=== PATIENT | female | born 1945 | race Caucasian/White ===

== ENCOUNTER 2020-07-10 09:05 | Outpatient (REF) | payer MEDICARE, MEDICAID, SELFPAY ==
--- NOTE | ~2020-07-10 | MM_ITS ---
EXAMINATION: MM SCREENING DIGITAL BREAST TOMOSYNTHESIS, BILATERAL CLINICAL INFORMATION: Screening. Asymptomatic. The lifetime risk of breast cancer based on the Tyrer-Cuzick Model is 3%. COMPARISON: Mammography: 06/30/2018, 04/20/2017, 04/15/2016, 03/14/2015 TECHNIQUE: Digital breast tomosynthesis is performed in both the craniocaudal and mediolateral oblique views along with computer-aided detection (CAD). Synthesized 2D images are generated from the tomosynthesis. FINDINGS: The breasts are heterogeneously dense, which may obscure small masses (ACR BI-RADS breast composition Category c). There are no significant masses, abnormal calcifications, or other abnormalities. Parenchymal pattern is similar to prior studies. No developing density. The axilla and skin contours are unremarkable. MM/MM tomosynthesis screening BI IMPRESSION: No mammographic evidence of malignancy. ASSESSMENT: BI-RADS 1: Negative RECOMMENDATION: Routine annual mammography screening. This patient's information was entered into a reminder system with a target due date for their next mammogram.
== END 2020-07-10 09:06 | disposition home or self-care (01) ==
LOC: HO.MAMMO 09:05
PROVIDERS: PCP Internal Medicine; Visit Provider Internal Medicine
DX: Z12.31 Encounter for screening mammogram for malignant neoplasm of breast (principal)
CPT/HCPCS: 77063; 77067

== ENCOUNTER 2020-07-24 10:24 | Outpatient (REF) | payer MEDICARE, MEDICAID, SELFPAY ==
[2020-07-24 11:43] LABS: Glucose Urine UA NEG (NEG); Leukocyte Esterase Urine NEG (NEG); Nitrite Urine NEG (NEG); PH 6.5 (5.0-8.0); Urine Blood NEG (NEG); Urine Ketones NEG (NEG); Urine Protein NEG (NEG-TRACE)
[2020-07-24 11:44] LABS: Appearance Urine CLEAR; Color Urine YELLOW
[2020-07-24 11:47] LABS: Basophils Percent Auto 0.5 % (0-2); Hematocrit 41.7 % (37-47); Imm Gran Abs Auto 0.02 X10*3/uL (0.00-0.03); Imm Gran Pct Auto 0.3 % (0.0-0.4); MANUAL DIFF FLAG SCAN; Mean Platelet Volume 10.1 fL (9.4-12.3); PLT CLUMP 1; Red Cell Distribution Width 13.2 % (11.0-16.0); SCAN SMEAR FLAG 1
[2020-07-24 11:49] LABS: Eosinophils Absolute Auto 0.3 X10*3/uL (0.0-0.4); Eosinophils Percent Auto 5.5 % (0-4); Hemoglobin 13.7 g/dl (12.0-16.0); Lymphocytes Absolute Auto 0.7 X10*3/uL (1.2-4.9); Lymphocytes Percent Auto 11.3 % (20-40); Mean Corpuscular HGB Conc 32.9 g/dl (31.0-35.0); Mean Corpuscular Hemoglobin 32.3 pg (27.0-33.0); Mean Corpuscular Volume 98.3 fL (80-98); Monocytes Absolute Auto 0.6 X10*3/uL (0.1-1.2); Monocytes Percent Auto 9.7 % (2-11); Neutrophils Absolute Auto 4.5 X10*3/uL (2.0-8.3); Neutrophils Percent Auto 72.7 % (45-73); Red Blood Count 4.24 X10*6/uL (4.20-5.50); White Blood Count 6.2 X10*3/uL (4.8-10.8)
[2020-07-24 12:06] LABS: RBC Urine 0-2 /HPF (0)
[2020-07-24 12:07] LABS: Amorphous Sediment Urine 1+ /LPF; Bacteria Urine TRACE /LPF; Squamous Epithelial Cell Urine 1+ /LPF
[2020-07-24 12:19] LABS: Platelet Count 270 X10*3/uL (160-400); SLIDE REVIEW VERIFIED
[2020-07-24 12:33] LABS: TSH reflex Free T4 0.83 uIU/mL (0.32-4.0); Vitamin D 25-OH Total 33.6 ng/mL (>30)
[2020-07-24 12:51] LABS: Alanine Aminotransferase 11 U/L (0-31); Albumin Level 4.1 g/dL (3.5-5.0); Alkaline Phosphatase 90 U/L (39-117); Anion Gap 11 (12-20); Aspartate Amino Transferase 21 U/L (5-31); Bilirubin Total 0.5 mg/dL (0.0-1.0); Blood Urea Nitrogen 10 mg/dL (9-16); Calcium 9.1 mg/dL (8.4-10.2); Carbon Dioxide 27 mmol/L (22-29); Chloride 106 mmol/L (96-108); Cholesterol 195 mg/dL; Estimated Glomerular Filt Rate > 60; Glucose Fasting 91 mg/dL (60-99); HDL Cholesterol 59 mg/dL; LDL Cholesterol Calculated 118 mg/dl; Potassium 4.3 mmol/L (3.3-5.1); Sodium 140 mmol/L (135-145); Total Protein 7.2 g/dL (6.5-8.0); Triglycerides 93 mg/dL; Vitamin B12 289 pg/mL (200-900)
== END 2020-07-24 10:25 | disposition home or self-care (01) ==
LOC: HO.LAB 10:24
PROVIDERS: PCP Internal Medicine; Visit Provider Nurse Practitioner Family
DX: Z13.220 Encounter for screening for lipoid disorders (principal); Z13.1 Encounter for screening for diabetes mellitus; E03.9 Hypothyroidism, unspecified
CPT/HCPCS: 36415; 80053; 80061; 81001; 82306; 82607; 82746; 84443; 85025

== ENCOUNTER 2020-08-21 09:01 | Outpatient (REF) | payer MEDICARE, MEDICAID, SELFPAY ==
--- NOTE | ~2020-08-21 | MM_ITS ---
EXAMINATION: BONE DENSITOMETRY CLINICAL INDICATION: Asymptomatic menopausal state. COMPARISON: Baseline BD dated 01/01/2011. TECHNIQUE: Using a Logan DXA System (software version: 13.1) manufactured by [employer], dual-energy x-ray absorptiometry was performed of the lumbar spine and left hip. The images are of good technical quality. Summary results are attached. FINDINGS: AP SPINE L1-L4: Current: BMD 1.372 g/cm2, Z-score 3.2, T-score 1.6, normal, 2.3% increase from baseline (<5% change is not significant). Baseline: BMD 1.341 g/cm2. LEFT FEMUR, NECK: Current: BMD 0.795 g/cm2, Z-score 0.1, T-score -1.7, osteopenia. Baseline: BMD 0.960 g/cm2. LEFT FEMUR, TOTAL: Current: BMD 0.939 g/cm2, Z-score 1.1, T-score -0.5, normal, 5.2% decrease from baseline (<5% change is not significant). Baseline: BMD 0.990 g/cm2. IDENTIFIED RISK FACTORS: Osteoporosis, history of fracture (adult). Early menopause, secondary osteoporosis, height loss, hysterectomy and bilateral oophorectomy. HISTORY OF FRACTURE: Pelvis, shoulder. MEDICATIONS: Calcium supplements or multivitamin, vitamin D. MM/XR DEXA axial skeleton IMPRESSION: 1. DIAGNOSIS: Osteopenia based on the lowest T-score value of -1.7 in the femoral neck applying World Health Organization criteria. 2. 10-YEAR FRACTURE RISK PREDICTION, FRAX: Major osteoporotic fracture (clinical spine, forearm, hip or shoulder) 18.4%. Hip fracture 4.0%. 3. Treatment Recommendations: NOF guidelines recommend consideration for treatment in postmenopausal women and men age 50 and older presenting with the following: -A hip or vertebral (clinical or morphometric) fracture. -T-score less than or equal to -2.5 at the femoral neck or spine after appropriate evaluation to exclude secondary causes. -Low bone mass at the hip or spine and a 10-year fracture probability by FRAX of greater than or equal to 3% for hip fracture or greater than or equal to 20% for major osteoporotic fracture based on the [place] adapted WHO algorithm. 4. Other Recommendations: All treatment decisions require clinical judgment and consideration of individual patient factors, including patient preferences, comorbidities, previous drug use, risk factors not captured in the FRAX model (e.g. frailty, falls, vitamin D deficiency, increased bone turnover, interval significant decline in bone density) and possible under or overestimation of fracture risk by FRAX. Additional medical evaluation for secondary cause of low bone mineral density may be appropriate. FUTURE SCAN RECOMMENDATION: People with diagnosed cases of osteoporosis or at high risk for fracture should have regular bone mineral density tests. For patients eligible for Medicare, routine testing is allowed once every 2 years. The testing frequency can be increased to one year for patients who have rapidly progressing disease, those who are receiving or discontinuing medical therapy to restore bone mass, or have additional risk factors.
== END 2020-08-21 09:02 | disposition home or self-care (01) ==
LOC: HO.MAMMO 09:01
PROVIDERS: Visit Provider Nurse Practitioner Family
DX: Z13.820 Encounter for screening for osteoporosis (principal); M85.80 Other specified disorders of bone density and structure, unspecified site; Z78.0 Asymptomatic menopausal state; Z79.899 Other long term (current) drug therapy; Z87.81 Personal history of (healed) traumatic fracture
CPT/HCPCS: 77080

== ENCOUNTER 2021-05-07 11:30 | Outpatient (REF) | payer MEDICARE, MEDICAID, SELFPAY ==
[2021-05-07 11:57] LABS: MANUAL DIFF FLAG NO
[2021-05-07 12:34] LABS: Basophils Percent Auto 0.5 % (0-2); Eosinophils Absolute Auto 0.3 X10*3/uL (0.0-0.4); Eosinophils Percent Auto 4.9 % (0-4); Hematocrit 39.3 % (37.0-47.0); Hemoglobin 12.8 g/dl (12.0-16.0); Imm Gran Abs Auto 0.02 X10*3/uL (0.00-0.03); Imm Gran Pct Auto 0.3 % (0.0-0.4); Lymphocytes Absolute Auto 0.7 X10*3/uL (1.2-4.9); Lymphocytes Percent Auto 10.6 % (20-40); Mean Corpuscular HGB Conc 32.6 g/dl (31.0-35.0); Mean Corpuscular Hemoglobin 31.8 pg (27.0-33.0); Mean Corpuscular Volume 97.8 fL (80.0-98.0); Mean Platelet Volume 9.3 fL (9.4-12.3); Monocytes Absolute Auto 0.7 X10*3/uL (0.1-1.2); Monocytes Percent Auto 11.5 % (2-11); Neutrophils Absolute Auto 4.4 x10*3/uL (2.0-8.3); Neutrophils Percent Auto 72.2 % (45-73); Platelet Count 295 X10*3/uL (160-400); Red Blood Count 4.02 X10*6/uL (4.20-5.50); Red Cell Distribution Width 13.6 % (11.0-16.0); White Blood Count 6.2 X10*3/uL (4.8-10.8)
[2021-05-07 12:49] LABS: Appearance Urine CLEAR; Color Urine YELLOW; Glucose Urine UA NEG (NEG); Leukocyte Esterase Urine NEG (NEG); Nitrite Urine NEG (NEG); PH 6.5 (5.0-8.0); Specific Gravity - Urine <= 1.005 (1.005-1.025); Urine Blood NEG (NEG); Urine Ketones 5 MG/DL (NEG); Urine Protein NEG (NEG-TRACE)
[2021-05-07 13:51] LABS: Alanine Aminotransferase 14 U/L (0-31); Albumin Level 3.8 g/dL (3.5-5.0); Alkaline Phosphatase 84 U/L (39-117); Anion Gap 13 (12-20); Aspartate Amino Transferase 20 U/L (5-31); Bilirubin Total 0.6 mg/dL (0.0-1.0); Blood Urea Nitrogen 10 mg/dL (9-16); Calcium 9.1 mg/dL (8.4-10.2); Carbon Dioxide 25 mmol/L (22-29); Chloride 103 mmol/L (96-108); Cholesterol 182 mg/dL; Estimated Glomerular Filt Rate > 60; Glucose Fasting 82 mg/dL (60-99); HDL Cholesterol 53 mg/dL; LDL Cholesterol Calculated 107 mg/dl; Potassium 4.3 mmol/L (3.3-5.1); Sodium 137 mmol/L (135-145); Triglycerides 114 mg/dL
[2021-05-07 14:02] LABS: Free T4 (Free Thyroxine) 1.08 ng/dL (0.71-1.85); Thyroid Stimulating Hormone 0.57 uIU/mL (0.32-4.0)
[2021-05-08 15:31] LABS: Vitamin D 25-OH Total 35.9 ng/mL (>30)
== END 2021-05-07 11:31 | disposition home or self-care (01) ==
LOC: HO.LAB 11:30
PROVIDERS: PCP Internal Medicine; Visit Provider Internal Medicine
DX: I10 Essential (primary) hypertension (principal); E78.00 Pure hypercholesterolemia, unspecified; E55.9 Vitamin D deficiency, unspecified; E03.9 Hypothyroidism, unspecified
CPT/HCPCS: 36415; 80053; 80061; 81003; 82306; 84439; 84443; 85025

== ENCOUNTER 2021-07-16 10:01 | Outpatient (REF) | payer MEDICARE, MEDICAID, SELFPAY ==
--- NOTE | ~2021-07-16 | MM_ITS ---
EXAMINATION: MM SCREENING DIGITAL BREAST TOMOSYNTHESIS, BILATERAL CLINICAL INFORMATION: Screening. Asymptomatic. The lifetime risk of breast cancer based on the Tyrer-Cuzick Model is 3%. COMPARISON: Mammography: 07/10/2020, 06/30/2018, 04/20/2017, 04/15/2016, 03/14/2015 TECHNIQUE: Digital breast tomosynthesis is performed in both the craniocaudal and mediolateral oblique views along with computer-aided detection (CAD). Synthesized 2D images are generated from the tomosynthesis. Additional left MLO view is provided. FINDINGS: The breasts are heterogeneously dense, which may obscure small masses (ACR BI-RADS breast composition Category c). There are no significant masses, abnormal calcifications, or other abnormalities. Breast tissue composition borders on average fibroglandular. There is no developing density. There are some punctate calcifications in each breast similar to prior studies. The axilla are unremarkable. MM/MM tomosynthesis screening BI IMPRESSION: No mammographic evidence of malignancy. ASSESSMENT: BI-RADS 2: Benign RECOMMENDATION: Routine annual mammography screening. This patient's information was entered into a reminder system with a target due date for their next mammogram.
== END 2021-07-16 10:02 | disposition home or self-care (01) ==
LOC: HO.MAMMO 10:01
PROVIDERS: PCP Internal Medicine; Visit Provider Internal Medicine
DX: Z12.31 Encounter for screening mammogram for malignant neoplasm of breast (principal)
CPT/HCPCS: 77063; 77067

== ENCOUNTER 2021-07-29 08:16 | Day surgery (SDC) | payer MEDICARE, MEDICAID, SELFPAY ==
[2021-07-23 11:11] VITALS: BMI 29.5
--- NOTE | 2021-07-28 08:33 | P.CONAN_ITS ---
Documented by User: Tory Fuentes NP 07/28/21 08:34 HPI - Anesthesia Eval Consult details Narrative: 76yo M for Colonoscopy PMFSH Active Problems Active Problems: All Active Problems (Updated 07/23/21 @ 11:13 by Kerri Mehta RN) Screening for diabetes mellitus (Acute) Screening for colon cancer (Acute) Screening for hyperlipidemia (Acute) Adult general medical exam (Acute) History of uterine cancer (Acute) Obesity (BMI 30-39.9) (Acute) Overactive bladder (Acute) GERD without esophagitis (Acute) Pure hypercholesterolemia (Acute) Acquired hypothyroidism (Acute) Post-menopausal (Acute) Past Medical History Medical History COVID-19 vaccine series declined Endometrioid carcinoma Family History Family History Mother No problems noted. Father No problems noted. Surgical History Surgical History History of colonoscopy History of hysterectomy History of pelvic surgery Social History Social History Household Members Other:: lives in [facility] Housing: Other Housing Other:: lives in [facility] Are you a primary rn progressive care unit to a significant other at home: No Do you presently have visiting nurse or other home services: No Alcohol intake: never Patient Tobacco Use Status: Never used Tobacco Second Hand Smoke Exposure: Yes Use of substances other than those prescribed or required for medical reasons: No Have you been hit, kicked, punched, or otherwise hurt by someone within the past year? If so, by whom?: No Are you DNR?: No Advance Directives Information Provided: Yes (will bring copy DOS) Advance Directives on File: No Recently lost weight without trying: No Eating poorly because of decreased appetite: No Nutrition Risks: No Nutritional Risk Poor oral hygiene: No (has partial denture) service: No Current occupational status: retired and disabled Meds Allergies Allergy/AdvReac Type Severity Reaction Status Date / Time Sulfa (Sulfonamide Allergy Unknown Anaphylaxis Verified 05/07/21 10:38 Antibiotics) narcotics/opioids Allergy Unknown oppisite Uncoded 05/07/21 10:38 effect Home Medications Medication Instructions Recorded Confirmed Last Taken Type multivitamin 1 tab PO DAILY 07/24/20 07/23/21 Unknown History psyllium seed (sugar) oral powder 1 tsp PO DAILY 07/24/20 07/23/21 Unknown History (Metamucil (sugar)) calcium carbonate 600 mg calcium 600 mg PO DAILY 07/23/21 07/23/21 Unknown History (1,500 mg) tablet (Calcium) Exam Exam Date and Time: July 28, 2021 0833 Height,Weight and Vital Signs: Height 5 ft Weight 68.492 kg Pertinent Lab Results Pertinent Lab Results: Laboratory Tests 05/07/21 05/07/21 11:56 11:56 WBC 6.2 Hgb 12.8 Hct 39.3 Plt Count 295 Sodium 137 Potassium 4.3 Chloride 103 Carbon Dioxide 25 BUN 10 Creatinine 0.64 Assessment and Plan Assessment Anesthesia Assessment: Chart Reviewed Documented by User: Jerome Love MD 07/29/21 09:39 [facility] Past Medical History Medical History COVID-19 vaccine series declined Endometrioid carcinoma Family History Family History Mother No problems noted. Father No problems noted. Family history of problems with anesthesia: No Surgical History Surgical History History of colonoscopy History of hysterectomy History of pelvic surgery History of Problems with Anesthesia: No Social History Social History Household Members Other:: lives in [facility] Housing: Other Housing Other:: lives in [facility] Are you a primary rn progressive care unit to a significant other at home: No Do you presently have visiting nurse or other home services: No Alcohol intake: never Patient Tobacco Use Status: Never used Tobacco Second Hand Smoke Exposure: Yes Use of substances other than those prescribed or required for medical reasons: No Have you been hit, kicked, punched, or otherwise hurt by someone within the past year? If so, by whom?: No Are you DNR?: No Advance Directives Information Provided: Yes (will bring copy DOS) Advance Directives on File: No Recently lost weight without trying: No Eating poorly because of decreased appetite: No Nutrition Risks: No Nutritional Risk Poor oral hygiene: No (has partial denture) service: No Current occupational status: retired and disabled Meds Allergies Allergy/AdvReac Type Severity Reaction Status Date / Time Sulfa (Sulfonamide Allergy Unknown Anaphylaxis Verified 05/07/21 10:38 Antibiotics) narcotics/opioids Allergy Unknown oppisite Uncoded 05/07/21 10:38 effect Home Medications Medication Instructions Recorded Confirmed Last Taken Type multivitamin 1 tab PO DAILY 07/24/20 07/23/21 Unknown History psyllium seed (sugar) oral powder 1 tsp PO DAILY 07/24/20 07/23/21 Unknown History (Metamucil (sugar)) calcium carbonate 600 mg calcium 600 mg PO DAILY 07/23/21 07/23/21 Unknown History (1,500 mg) tablet (Calcium) Exam Airway Mallampati Class: II TM Dist: >3cm Neck ROM: Full Partial: Lower Loose/Missing/Broken Teeth: Yes Assessment and Plan Assessment Anesthesia Assessment: Anesthesia Plan Discussed Final Anesthetic Review Family History of Problems with Anesthesia: No History of Problems with Anesthesia: No NPO: Yes ASA Class: III Final Preanesthetic Review: No Changes in Pt Med Stat, Meds/Allgs Chart Reviewed, Consent Obtained/Reviewed and Anes Risks/Benef Reviewed Patient Risk: Intermediate Procedure Risk: Low Anesthetic Plan Anesthetic Plan: MAC: Disposition: Standard PACU
[2021-07-29 09:27] VITALS: BP 141/62; PULSE 63; RESP 16; TEMP 36.7; O2SAT 96; BMI 28.9
[2021-07-29] MEDS: Lactated Ringers 1,000 ML 100 ML IVCONT (09:37)
--- NOTE | 2021-07-29 09:37 | MHC.SHP ---
Pre-Procedural Eval Section A Date of Service: 07/29/21 Section B Chief Complaint: screening Details of Present Illness: see H&P no changes Relevant Family History (Specify if Yes): No Relevant Social History: None Present Medications: see Short Stay Collaborative assessment Medical History: No relevant PMH History of Previous Operations: No relevant previous surgery Allergies: Allergies Allergy/AdvReac Type Severity Reaction Status Date / Time Sulfa (Sulfonamide Allergy Unknown Anaphylaxis Verified 05/07/21 10:38 Antibiotics) narcotics/opioids Allergy Unknown oppisite Uncoded 05/07/21 10:38 effect Review of Systems Sugical H&P ROS: Negative: Constitution, Cardiovascular, Respiratory, Neurological, Psychiatric, Hem-Onc, Allergic/Immunologic, Gastrointestinal, Genitourinary, Musculoskeletal, Integumentary, Endocrine and Eyes/Ears/Nose/Throat Exam Surgical H&P Exam: Normal: HEENT, Normal: Heart, Normal: Lungs, Normal: Extremities, Normal: Abdomen, Normal: Skin and Normal: Neurological Plan Diagnosis/Plan: Unchanged I have reviewed the history and physical and performed a pertinent physical examination on my patient. No changes have occurred unless specified.
[2021-07-29 10:17] VITALS: BP 93/43; PULSE 61; RESP 20; TEMP 36.1; O2SAT 95
--- NOTE | 2021-07-29 10:18 | PM.OP ---
Brief Operative Note Date of Service: 07/29/21 Pre-op diagnosis: screening Post-op diagnosis: same (colon polyps) Surgeon: Vignesh Blanc Anesthesia: MAC Was an Associate Programmer Analyst used for this Procedure?: No Estimated blood loss (mL): 5 Pathology: other (polyps x5) Condition: stable Disposition: PACU
[2021-07-29 10:32] VITALS: BP 131/55; PULSE 61; RESP 18; TEMP 36.1; O2SAT 96
--- NOTE | 2021-07-29 12:41 | OP_ITS ---
SURGEON: Vignesh Blanc MD INDICATIONS: Colon cancer screening. PREOPERATIVE DIAGNOSIS: POSTOPERATIVE DIAGNOSIS: PROCEDURE PERFORMED: Colonoscopy to the terminal ileum with snare polypectomy and biopsy. ESTIMATED BLOOD LOSS: COMPLICATIONS: ANESTHESIA: ASSISTANTS: SPECIMENS: MEDICATIONS: Monitored anesthesia care. DESCRIPTION OF PROCEDURE: History and physical were performed. The risks and benefits of the procedure were explained to the patient. Informed consent was obtained. The patient was placed in the left lateral decubitus position. A digital rectal exam was performed and was found to be normal. The Olympus pediatric video colonoscope was introduced into the rectum and advanced to the cecum without difficulty. The cecum was identified by transillumination, palpation, and identification of ileocecal valve. Examination was performed. The scope was removed. She tolerated the procedure well and was taken to recovery area in stable condition. FINDINGS: The terminal ileum was normal. The visualized colonic mucosa was within normal limits without evidence of masses or ulcers. There were multiple polyps, 2 were located in the cecum, 1 at 65 cm, 1 at 60 cm and 1 at 50 cm. The largest measured approximately 8 mm. Polyps were removed with a combination of snare and biopsy forceps. Retroflexed examination showed some small internal hemorrhoids. The quality of the prep was good. No other lesions were identified. IMPRESSION: Colon polyps. RECOMMENDATION: Follow up the biopsy results. MD MK Martinez/PBL / [id number]
== END 2021-07-29 11:33 | disposition home or self-care (01) ==
PROVIDERS: PCP Internal Medicine; Visit Provider Internal Medicine Gastroenterology
PROC: 0DJD8ZZ Inspection of Lower Intestinal Tract, Via Natural or Artificial Opening Endoscopic (ICD-10-PCS; CPT 45378; principal; 2021-07-29 09:50)
DX: Z12.11 Encounter for screening for malignant neoplasm of colon (principal); D12.0 Benign neoplasm of cecum; D12.4 Benign neoplasm of descending colon; D12.5 Benign neoplasm of sigmoid colon; K64.8 Other hemorrhoids; E78.5 Hyperlipidemia, unspecified; E03.9 Hypothyroidism, unspecified; Z79.899 Other long term (current) drug therapy; Z88.2 Allergy status to sulfonamides; Z88.8 Allergy status to other drugs, medicaments and biological substances; Z85.42 Personal history of malignant neoplasm of other parts of uterus; Z92.3 Personal history of irradiation
CPT/HCPCS: 45385; 45380; 88305

== ENCOUNTER 2021-11-06 08:55 | Outpatient (REF) | payer MEDICARE, MEDICAID, SELFPAY ==
[2021-11-06 09:14] LABS: MANUAL DIFF FLAG NO
[2021-11-06 09:47] LABS: Basophils Percent Auto 0.5 % (0-2); Eosinophils Absolute Auto 0.4 X10*3/uL (0.0-0.4); Eosinophils Percent Auto 5.6 % (0-4); Hematocrit 38.1 % (37.0-47.0); Hemoglobin 12.8 g/dl (12.0-16.0); Imm Gran Abs Auto 0.03 X10*3/uL (0.00-0.03); Imm Gran Pct Auto 0.4 % (0.0-0.4); Lymphocytes Absolute Auto 0.8 X10*3/uL (1.2-4.9); Lymphocytes Percent Auto 10.2 % (20-40); Mean Corpuscular HGB Conc 33.6 g/dl (31.0-35.0); Mean Corpuscular Hemoglobin 32.4 pg (27.0-33.0); Mean Corpuscular Volume 96.5 fL (80.0-98.0); Mean Platelet Volume 9.2 fL (9.4-12.3); Monocytes Absolute Auto 0.7 X10*3/uL (0.1-1.2); Monocytes Percent Auto 9.8 % (2-11); Neutrophils Absolute Auto 5.6 x10*3/uL (2.0-8.3); Neutrophils Percent Auto 73.5 % (45-73); Platelet Count 304 X10*3/uL (160-400); Red Blood Count 3.95 X10*6/uL (4.20-5.50); Red Cell Distribution Width 13.2 % (11.0-16.0); White Blood Count 7.6 X10*3/uL (4.8-10.8)
[2021-11-06 10:12] LABS: Alanine Aminotransferase 13 U/L (0-31); Albumin Level 3.9 g/dL (3.5-5.0); Alkaline Phosphatase 76 U/L (39-117); Anion Gap 15 (12-20); Aspartate Amino Transferase 20 U/L (5-31); Bilirubin Total 0.6 mg/dL (0.0-1.0); Blood Urea Nitrogen 11 mg/dL (9-16); Calcium 8.8 mg/dL (8.4-10.2); Carbon Dioxide 26 mmol/L (22-29); Chloride 102 mmol/L (96-108); Cholesterol 194 mg/dL; Estimated Glomerular Filt Rate > 60; Glucose Fasting 93 mg/dL (60-99); HDL Cholesterol 54 mg/dL; LDL Cholesterol Calculated 106 mg/dl; Potassium 4.2 mmol/L (3.3-5.1); Sodium 139 mmol/L (135-145); Total Protein 7.1 g/dL (6.5-8.0); Triglycerides 174 mg/dL
[2021-11-06 10:38] LABS: Free T4 (Free Thyroxine) 1.02 ng/dL (0.71-1.85); Thyroid Stimulating Hormone 0.82 uIU/mL (0.32-4.0); Vitamin D 25-OH Total 32.2 ng/mL (>30)
[2021-11-06 11:15] LABS: Appearance Urine Clear; Color Urine Yellow; Glucose Urine UA Negative (Negative); Leukocyte Esterase Urine Small (1+) (Negative); Nitrite Urine Negative (Negative); PH 7.5 (5.0-9.0); UMIC TRIGGER UACC YES; Urine Blood Negative (Negative); Urine Ketones Negative (Negative); Urine Protein Negative (Neg-Trace)
[2021-11-06 11:32] LABS: Bacteria Urine 2+ (None Seen); Hyaline Casts Urine 0-2 /LPF (0-2); RBC Urine 0-2 /HPF (0-2); Squamous Epithelial Cell Urine 0-2 /HPF (0-2); UACC Culture Trigger YES; WBC Urine 0-5 /HPF (0-5)
== END 2021-11-06 08:56 | disposition home or self-care (01) ==
LOC: HO.LAB 08:55
PROVIDERS: PCP Internal Medicine; Visit Provider Internal Medicine
DX: I10 Essential (primary) hypertension (principal); E55.9 Vitamin D deficiency, unspecified; E78.00 Pure hypercholesterolemia, unspecified; E03.9 Hypothyroidism, unspecified
CPT/HCPCS: 36415; 80053; 80061; 81001; 82306; 84439; 84443; 85025; 87086; 87088; 87186

== ENCOUNTER 2022-07-20 10:17 | Outpatient (REF) | payer MEDICARE, MEDICAID, SELFPAY ==
--- NOTE | ~2022-07-20 | MM_ITS ---
EXAMINATION: MM SCREENING DIGITAL BREAST TOMOSYNTHESIS, BILATERAL CLINICAL INFORMATION: Screening. Asymptomatic. The lifetime risk of breast cancer based on the Tyrer-Cuzick Model is 3%. COMPARISON: Mammography: 07/16/2021, 07/10/2020, 06/30/2018 TECHNIQUE: Digital breast tomosynthesis is performed in both the craniocaudal and mediolateral oblique views along with computer-aided detection (CAD). Synthesized 2D images are generated from the tomosynthesis. FINDINGS: The breasts are heterogeneously dense, which may obscure small masses (ACR BI-RADS breast composition Category c). There are no significant masses, abnormal calcifications, or other abnormalities. No developing density or architectural abnormality. Again, there are some scattered punctate calcifications in each breast, a few are layering. The axilla and skin contours are unremarkable. No significant changes. MM/MM tomosynthesis screening BI IMPRESSION: No mammographic evidence of malignancy. ASSESSMENT: BI-RADS 2: Benign RECOMMENDATION: Routine annual mammography screening. This patient's information was entered into a reminder system with a target due date for their next mammogram.
== END 2022-07-20 10:18 | disposition home or self-care (01) ==
LOC: HO.MAMMO 10:17
PROVIDERS: PCP Internal Medicine; Visit Provider Internal Medicine
DX: Z12.31 Encounter for screening mammogram for malignant neoplasm of breast (principal)
CPT/HCPCS: 77063; 77067

== ENCOUNTER 2022-11-25 09:08 | Outpatient (REF) | payer MEDICARE, MEDICAID, SELFPAY | END 2022-11-25 09:09 | disposition home or self-care (01) | LOC: HO.LAB 09:08 | PROVIDERS: PCP Internal Medicine; Visit Provider Internal Medicine | DX: I10 Essential (primary) hypertension (principal); E78.00 Pure hypercholesterolemia, unspecified; E03.9 Hypothyroidism, unspecified; E55.9 Vitamin D deficiency, unspecified; R30.0 Dysuria | CPT/HCPCS: 36415; 80053; 80061; 81001; 82306; 84439; 84443; 85025 ==

== ENCOUNTER 2022-12-01 09:41 | Outpatient (AMB) | payer MEDICARE, MEDICAID, SELFPAY ==
[2022-12-01 09:50] VITALS: BP 124/78; PULSE 65; O2SAT 96; BMI 28.5
--- NOTE | 2022-12-01 09:50 | A.OFFPC_ITS ---
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 Accompanied by: Self / Same As Patient Allergies Sulfa (Sulfonamide Antibiotics) Allergy (Unknown, Verified 12/01/22 10:12) Anaphylaxis narcotics/opioids Allergy (Unknown, Uncoded 12/01/22 10:12) oppisite effect Medication List - Last Reconciled 12/01/22 by Heri Blanco MD calcium carbonate (Calcium) 600 mg PO DAILY [KNEE SUPPORT BRACE (right) As directed] levothyroxine 50 mcg PO QAM 90 days mirabegron ER (Myrbetriq) 25 mg PO DAILY 90 days multivitamin 1 tab PO DAILY psyllium seed (sugar) (Metamucil (sugar) oral powder) 1 tsp PO DAILY Tobacco use date assessed: 12/01/22 Fall risk assessment: No Falls in past year Last assessed Fall Risk: 12/01/22 Dental Screening Dental Screen Date: 12/01/22 Did you have a dental visit in the last 12 months?: Yes Did you have a dental problem in the last 6 months where you did not have access to dental care?: No Was dental information given to patient?: Patient has dentist HPI hypothyroidism,hyperlipidemia,osteopenia,GERD, OAB HPI Details Patient comes in today for her follow up visit States that she feels okay She denies any headaches or dizziness Denies any chest pains, no SOB No nausea/vomiting, no abdominal pain No change in bowel habits noted Had her follow up labs done last week - to discuss her results [facility] Medical History (Updated 12/01/22 @ 10:31 by Heri Blanco MD) Overweight (BMI 25.0-29.9) Osteopenia COVID-19 vaccine series declined Obesity (BMI 30-39.9) Overactive bladder GERD without esophagitis Pure hypercholesterolemia Endometrioid carcinoma (~01/2018) Acquired hypothyroidism Post-menopausal Surgical History History of colonoscopy History of hysterectomy History of pelvic surgery (~08/21/19) Family History Mother No problems noted. Father No problems noted. Social History Household Members Other:: lives in [facility] Housing: Other Housing Other:: lives in [facility] Are you a primary youth career specialist to a significant other at home: No Do you presently have visiting nurse or other home services: No Alcohol intake: never Patient Tobacco Use Status: Never used Tobacco Second Hand Smoke Exposure: Yes service: No Current occupational status: retired and disabled Cognitive needs: Yes (walker) Hearing needs: No Vision needs: Yes Questionnaire PHQ-9 Over the last 2 weeks, how often have you been bothered by any of the following problems? 1. Little interest or pleasure in doing things: not at all 2. Feeling down, depressed, or hopeless: not at all 3. Trouble falling or staying asleep, or sleeping too much: not at all 4. Feeling tired or having little energy: not at all 5. Poor appetite or overeating: not at all 6. Feeling bad about yourself - or that you are a failure or have let yourself or your family down: not at all 7. Trouble concentrating on things, such as reading the newspaper or watching television: not at all 8. Moving or speaking so slowly that other people could have noticed. Or the opposite - being so fidgety or restless that you have been moving around a lot more than usual: not at all 9. Thoughts that you would be better off or of hurting yourself in some way: not at all Total score: 0 Depression Screening Interpretation: Negative Depression Screening Done: Yes 71311 - PHQ-9 Billing: Yes Source: Developed by Drs. William Lee, Ruth Pena, Mason Gao and colleagues, with an educational mitchell from [employer]. Thrive Questionnaire Date Thrive assessed: 12/01/22 I am a: Patient What is your living situation today?: I have a steady place to live Within the past 12 months, did the food you bought not last and you didn't have the money to get more?: Never true Within the past 12 months, did you worry whether your food would run out before you got money to buy more?: Never true Do you have trouble paying for medicines?: No Do you have trouble getting transportation to medical appointments?: No Do you have trouble paying your heating and electricity bill?: No Do you have trouble taking care of your child, family member or friend?: No Do you have trouble with day-to-day activities such as bathing, preparing meals, shopping, managing finances, etc.?: No Are you currently unemployed and looking for a job?: No Are you interested in more education?: No Please select the resources that you would like help with: None Currently or been in a relationship where the following occur: no concerns reported AUDIT C Alcohol Use Questionnaire (AUDIT-C) 1. How often do you have a drink containing alcohol?: Never 3. How often do you have six or more drinks on one occasion?: Never Total Score: 0 Score Reviewed/Action Taken: Yes DEISY-7 AMB Questionnaire DEISY-7 Date DEISY - 7 assessed: 12/01/22 Feeling nervous, anxious, or on edge: 0 = Not at all Not being able to stop or control worryin = Not at all Worrying too much about different things: 0 = Not at all Trouble relaxin = Not at all Being so restless that it is hard to sit still: 0 = Not at all Becoming easily annoyed or irritable: 0 = Not at all Feeling afraid as if something awful might happen: 0 = Not at all Total DEISY-7 score (0-4 normal; 5-9 mild; 10-14 moderate; 15-21 severe): 0 Source: Developed by Drs. William Lee, Ruth Pena, Mason Gao and colleagues, with an educational mitchell from [employer]. Review of Systems Const Denies chills, Denies fatigue, Denies fever(s) and Denies headache(s) ENT Denies dysphagia, Denies dizziness, Denies otalgia, Denies headache(s), Denies odynophagia and Denies sore throat Card Denies chest pain, Denies palpitations and Denies dyspnea Resp Denies cough, Denies dyspnea and Denies wheezing GI Denies abdominal pain, Denies constipation, Denies dysphagia, Denies heartburn, Denies diarrhea, Denies nausea, Denies odynophagia and Denies vomiting Denies difficulty voiding, Denies nocturia, Denies dysuria and Denies urinary urgency Musc Details: right knee feels weak/unstable; on and off pelvic pain, usually with increased activity Skin/Breast Denies rash Neuro Denies dizziness and Denies headache(s) Endo Denies fatigue and Denies palpitations Aller/Immun Denies wheezing Physical exam (Primary Care) Vital Signs: Last Vital Signs Pulse 65 12/01/22 09:50 BP 124/78 12/01/22 09:50 Pulse Ox 96 12/01/22 09:50 Oxygen Delivery Method Room Air 12/01/22 09:50 BMI result Body Mass Index 28.5 Tobacco/Smoking Status: Tobacco use Status Tobacco use date assessed 12/01/22 12/01/22 09:51 Patient Tobacco Use Status Never used Tobacco 12/01/22 09:51 PHQ-9: PHQ-9 Score PHQ-9: Total score 0 12/01/22 09:51 Depression Screening Interpretation: Negative Thrive Assessment: Date of Thrive Assessment Date Thrive assessed 12/01/22 12/01/22 09:51 Currently or been in a relationship where the following occur: no concerns reported Const General: no acute distress and alert HENMT Ears: TM's normal bilaterally and EAC's normal Throat: Yes posterior oropharynx normal and Yes tonsils normal (no TP congestion noted) Neck Neck: Yes no lymphadenopathy and Yes supple Thyroid: Thyroid normal Resp Auscultation: clear to auscultation bilaterally, no rales and no wheezes Cardio Rate: regular rate Rhythm: regular rhythm Heart sounds: no murmurs GI Palpation (GI): Soft to palpation and nontender Auscultation: normal bowel sounds Back/Spine/Pelvis Thoracic/Lumbar Spine: No lumbar spinal tenderness Extrem General: Yes no clubbing, cyanosis or edema Results Reviewed Results Reviewed: Laboratory Tests 11/25/22 09:45 WBC 6.7 Hgb 13.0 Hct 38.3 Plt Count 298 Sodium 138 Potassium 3.9 Creatinine 0.58 Estimated GFR > 60 Fasting Glucose 89 Calcium 9.5 D AST 19 ALT 13 Triglycerides 91 Cholesterol 177 LDL Cholesterol, Calc 101 H HDL Cholesterol 58 25-OH Vitamin D Total 38.0 TSH 0.80 Free T4 1.09 Urine pH 7.0 Ur Specific [place] 1.010 Urine Protein Negative Urine Glucose (UA) Negative Urine Blood Negative Assessment and Plan Assessment & Plan (1) Pure hypercholesterolemia: Code(s): E78.00 - Pure hypercholesterolemia, unspecified Plan: Results of her labs done last week reviewed and discussed with patient Reinforced low-cholesterol diet (2) Acquired hypothyroidism: Code(s): E03.9 - Hypothyroidism, unspecified Plan: Patient's TFTs were normal on her labs done last week Continue Levothyroxine 50 mcg QD (3) History of uterine cancer: Comment: (+) Endometrioid adenocarcinoma of uterus - diagnosed in 01/2018 S/P total laparoscopic hysterectomy, bilateral salpingo-oophorectomy, and sentinel pelvic lymph node dissection via da [place] by Dr. Mota Patient completed radiation therapy (WPRT) a couple of years ago Code(s): Z85.42 - Personal history of malignant neoplasm of other parts of uterus Plan: Follow up with gynecologic surgery as scheduled for continuing surveillance (4) Osteopenia: Code(s): M85.80 - Other specified disorders of bone density and structure, unspecified site Qualifiers: Osteopenia location: unspecified Qualified Code(s): M85.80 - Other specified disorders of bone density and structure, unspecified site Plan: BMD done on 08/21/2020 revealed (+) osteopenia with no significant change from previous BMD in 2010 Encouraged to continue on daily Vitamin D and Calcium supplements and to continue exercising regularly as tolerated Fall precautions reinforced (5) GERD without esophagitis: Code(s): K21.9 - Gastro-esophageal reflux disease without esophagitis Plan: Dietary restrictions reinforced (6) Chronic knee instability: Code(s): M23.50 - Chronic instability of knee, unspecified knee Qualifiers: Laterality: right Qualified Code(s): M23.51 - Chronic instability of knee, right knee Plan: Patient continues to use her knee brace to help stabilize her knee and improve her mobility - gets her knee brace from [facility] at [address] [place] [address] in [place], [place] ([phone]) (7) History of pelvic fracture: Comment: suspected pathologic fracture of the right superior inferior ramus and fractures of the iliac wing with peovic discontinuity - underwent ORIF of the right iliac wing with bone biopsy on 08/21/2019. Pathology was negative for metastatic disease. Code(s): Z87.81 - Personal history of (healed) traumatic fracture Plan: Patient continues to experience pelvic pain and discomfort with increased activity and walking. Has been certified permanently disabled by orthopedics, especially in terms of lifting (no lifting >15 pounds), walking and navigating stairs (only as tolerated) Follow up with [facility] as scheduled or as needed (8) Overactive bladder: Code(s): N32.81 - Overactive bladder Plan: Continue Myrbetriq 25 mg QD (9) Overweight (BMI 25.0-29.9): Code(s): E66.3 - Overweight Plan: Reinforced diet; exercise and weight loss are not really realistic or practical due to her physical issues but patient states that she tries to walk and stay active as much as she can tolerate Plan Follow up in 6 months Coding Level of Care Code Est Pt Level 4 (62627) Diagnoses Pure hypercholesterolemia E78.00 Acquired hypothyroidism E03.9 History of uterine cancer Z85.42 Osteopenia, unspecified location M85.80 Osteopenia location: unspecified GERD without esophagitis K21.9 Chronic instability of right knee M23.51 Laterality: right History of pelvic fracture Z87.81 Overactive bladder N32.81 Overweight (BMI 25.0-29.9) E66.3
== END 2022-12-01 10:30 | disposition home or self-care (01) ==
PROVIDERS: Visit Provider Internal Medicine
DX: E78.00 Pure hypercholesterolemia, unspecified (principal); E03.9 Hypothyroidism, unspecified; Z85.42 Personal history of malignant neoplasm of other parts of uterus; M85.80 Other specified disorders of bone density and structure, unspecified site; K21.9 Gastro-esophageal reflux disease without esophagitis; M23.51 Chronic instability of knee, right knee; Z87.81 Personal history of (healed) traumatic fracture; N32.81 Overactive bladder; E66.3 Overweight
CPT/HCPCS: 99214

== ENCOUNTER 2023-06-02 09:34 | Outpatient (AMB) | payer MEDICARE, MEDICAID, SELFPAY ==
--- NOTE | 2023-06-02 09:42 | MHC.PC.OV ---
Vital Signs 06/02/23 09:43 06/02/23 10:17 Height 5 ft Weight 145 lb 0.6 oz BMI 28.3 BP 142/78 H 140/86 H Blood Pressure Location Lt brachial Lt brachial Position Sitting Sitting Pulse 64 Pulse Source Pulse Oximeter Temp Source Skin Pulse Oximetry (%) 98 Oxygen Delivery Method Room Air Intake Visit Reasons: 6mth f/u Allergies Sulfa (Sulfonamide Antibiotics) Allergy (Unknown, Verified 06/02/23 10:08) Anaphylaxis codeine Adverse Reaction (Intermediate, Verified 06/02/23 10:10) Nausea Medication List - Last Reconciled 06/02/23 by Heri Blanco MD calcium carbonate (Calcium) 600 mg PO DAILY [KNEE SUPPORT BRACE (right) As directed] levothyroxine 50 mcg PO QAM 90 days mirabegron ER (Myrbetriq) 25 mg PO DAILY 90 days multivitamin 1 tab PO DAILY psyllium seed (sugar) (Metamucil (sugar) oral powder) 1 tsp PO DAILY Tobacco use date assessed: 06/02/23 Fall risk assessment: No Falls in past year Last assessed Fall Risk: 06/02/23 Dental Screening Dental Screen Date: 06/02/23 Did you have a dental visit in the last 12 months?: Yes Did you have a dental problem in the last 6 months where you did not have access to dental care?: No Was dental information given to patient?: Patient has dentist HPI 6mth f/u HPI Details Patient comes in today for her follow up visit States that she feels okay Currently has a brace on her right knee, which she feels is helping her a lot, but she is recently experiencing some discomfort with the brace and is wondering if it needs to be replaced or it can just be readjusted States that she is planning to go over to the supply store where she got the brace and ask them to check out her brace and see what they can do Would like to get Rx for a knee brace in case she has to replace it She has also been experiencing some stiffness of her fingers of both hands lately - feels like they lock up every now and then She denies any headaches or dizziness Denies any chest pains, no SOB No nausea/vomiting, no abdominal pain No change in bowel habits noted [facility] Medical History (Updated 06/02/23 @ 10:32 by Heri Blanco MD) Osteoarthritis of fingers of both hands Overweight (BMI 25.0-29.9) Osteopenia COVID-19 vaccine series declined Overactive bladder GERD without esophagitis Pure hypercholesterolemia Endometrioid carcinoma (~01/2018) Acquired hypothyroidism Post-menopausal Surgical History History of colonoscopy History of hysterectomy History of pelvic surgery (~08/21/19) Family History Mother No problems noted. Father No problems noted. Social History Household Members Other:: lives in [facility] Housing: Other Housing Other:: lives in [facility] Are you a primary director long term care to a significant other at home: No Do you presently have visiting nurse or other home services: No Alcohol intake: never Patient Tobacco Use Status: Never used Tobacco Second Hand Smoke Exposure: Yes service: No Current occupational status: retired and disabled Cognitive needs: Yes (walker) Hearing needs: No Vision needs: Yes Questionnaire PHQ-9 Over the last 2 weeks, how often have you been bothered by any of the following problems? 1. Little interest or pleasure in doing things: not at all 2. Feeling down, depressed, or hopeless: not at all 3. Trouble falling or staying asleep, or sleeping too much: not at all 4. Feeling tired or having little energy: not at all 5. Poor appetite or overeating: not at all 6. Feeling bad about yourself - or that you are a failure or have let yourself or your family down: not at all 7. Trouble concentrating on things, such as reading the newspaper or watching television: not at all 8. Moving or speaking so slowly that other people could have noticed. Or the opposite - being so fidgety or restless that you have been moving around a lot more than usual: not at all 9. Thoughts that you would be better off or of hurting yourself in some way: not at all Total score: 0 Depression Screening Interpretation: Negative Depression Screening Done: Yes 51322 - PHQ-9 Billing: Yes Source: Developed by Drs. William Lee, Ruth Pena, Mason Gao and colleagues, with an educational mitchell from [employer]. Thrive Questionnaire Date Thrive assessed: 06/02/23 I am a: Patient What is your living situation today?: I have a steady place to live Within the past 12 months, did the food you bought not last and you didn't have the money to get more?: Never true Within the past 12 months, did you worry whether your food would run out before you got money to buy more?: Never true Do you have trouble paying for medicines?: No Do you have trouble getting transportation to medical appointments?: No Do you have trouble paying your heating and electricity bill?: No Do you have trouble taking care of your child, family member or friend?: No Do you have trouble with day-to-day activities such as bathing, preparing meals, shopping, managing finances, etc.?: No Are you currently unemployed and looking for a job?: No Are you interested in more education?: No Please select the resources that you would like help with: None Currently or been in a relationship where the following occur: no concerns reported THRIVE Score: 0 AUDIT C Alcohol Use Questionnaire (AUDIT-C) 1. How often do you have a drink containing alcohol?: Never 3. How often do you have six or more drinks on one occasion?: Never Total Score: 0 Score Reviewed/Action Taken: Yes DEISY-7 AMB Questionnaire DEISY-7 Date DEISY - 7 assessed: 06/02/23 Feeling nervous, anxious, or on edge: 0 = Not at all Not being able to stop or control worryin = Not at all Worrying too much about different things: 0 = Not at all Trouble relaxin = Not at all Being so restless that it is hard to sit still: 0 = Not at all Becoming easily annoyed or irritable: 0 = Not at all Feeling afraid as if something awful might happen: 0 = Not at all Total DEISY-7 score (0-4 normal; 5-9 mild; 10-14 moderate; 15-21 severe): 0 Source: Developed by Ruth Galvan, Mason Gao and colleagues, with an educational mitchell from [employer]. Review of Systems Const Denies chills, Denies fatigue, Denies fever(s) and Denies headache(s) ENT Denies dysphagia, Denies dizziness, Denies otalgia, Denies headache(s), Denies neck pain, Denies odynophagia and Denies sore throat Card Denies chest pain, Denies palpitations and Denies dyspnea Resp Denies cough, Denies dyspnea and Denies wheezing GI Denies abdominal pain, Denies constipation, Denies dysphagia, Denies heartburn, Denies diarrhea, Denies nausea, Denies odynophagia and Denies vomiting Denies difficulty voiding, Denies nocturia, Denies dysuria and Denies urinary urgency Musc Details: right knee feels weak/unstable but having a knee brace on has helped a lot; occasional pelvic pain, usually only with increased activity Denies back pain, Reports arthralgias (right knee, on and off - feels unstable), Denies neck pain and Reports stiffness (in fingers of both hands) Skin/Breast Denies rash Neuro Denies dizziness and Denies headache(s) Endo Denies fatigue and Denies palpitations Aller/Immun Denies wheezing Physical exam (Primary Care) Vital Signs: Last Vital Signs Pulse 64 06/02/23 09:43 BP 142/78 H 06/02/23 09:43 Pulse Ox 98 06/02/23 09:43 Oxygen Delivery Method Room Air 06/02/23 09:43 BMI result Body Mass Index 28.3 Tobacco/Smoking Status: Tobacco use Status Tobacco use date assessed 06/02/23 06/02/23 09:47 Patient Tobacco Use Status Never used Tobacco 06/02/23 09:47 PHQ-9: PHQ-9 Score PHQ-9: Total score 0 06/02/23 09:47 Depression Screening Interpretation: Negative Thrive Assessment: Date of Thrive Assessment Date Thrive assessed 06/02/23 06/02/23 09:47 Currently or been in a relationship where the following occur: no concerns reported Const General: no acute distress and alert HENMT Ears: TM's normal bilaterally and EAC's normal Throat: Yes posterior oropharynx normal and Yes tonsils normal (no TP congestion noted) Neck Neck: Yes no lymphadenopathy and Yes supple Thyroid: Thyroid normal Resp Auscultation: clear to auscultation bilaterally, no rales and no wheezes Cardio Rate: regular rate Rhythm: regular rhythm Heart sounds: no murmurs GI Palpation (GI): Soft to palpation and nontender Auscultation: normal bowel sounds General: Yes no CVA tenderness Back/Spine/Pelvis Back: no CVA tenderness Cervical Spine: No Cervical spine tenderness Thoracic/Lumbar Spine: No lumbar spinal tenderness Skin Rashes: no rashes Extrem General: Yes no clubbing, cyanosis or edema Right upper extremity: normal to inspection Left upper extremity: normal to inspection Right lower extremity: knee (currently has a knee brace on, which she feels help a lot) Details: tenderness Assessment and Plan Assessment & Plan (1) Pure hypercholesterolemia: Code(s): E78.00 - Pure hypercholesterolemia, unspecified Plan: Reinforced low-cholesterol diet Will recheck her labs and fasting lipids in 6 months for follow up (2) Acquired hypothyroidism: Code(s): E03.9 - Hypothyroidism, unspecified Plan: Continue Levothyroxine 50 mcg QD Will recheck her TFTs in 6 months (3) History of uterine cancer: Comment: (+) Endometrioid adenocarcinoma of uterus - diagnosed in 01/2018 S/P total laparoscopic hysterectomy, bilateral salpingo-oophorectomy, and sentinel pelvic lymph node dissection via da [place] by Dr. Mota Patient completed radiation therapy (WPRT) a couple of years ago Code(s): Z85.42 - Personal history of malignant neoplasm of other parts of uterus Plan: Follow up with gynecologic surgery as scheduled for continuing surveillance (4) Osteopenia: Code(s): M85.80 - Other specified disorders of bone density and structure, unspecified site Qualifiers: Osteopenia location: unspecified Qualified Code(s): M85.80 - Other specified disorders of bone density and structure, unspecified site Plan: BMD done on 08/21/2020 revealed (+) osteopenia with no significant change from previous BMD in 2010 Encouraged to continue on daily Vitamin D and Calcium supplements and to continue exercising regularly as tolerated Reinforced fall precautions Will consider repeating her BMD again later this fall for follow up (5) GERD without esophagitis: Code(s): K21.9 - Gastro-esophageal reflux disease without esophagitis Plan: Dietary restrictions reinforced (6) Chronic knee instability: Code(s): M23.50 - Chronic instability of knee, unspecified knee Qualifiers: Laterality: right Qualified Code(s): M23.51 - Chronic instability of knee, right knee Plan: Patient continues to use her knee brace to help stabilize her knee and improve her mobility - gets her knee brace from [facility] at [address] [place] [address] in [place], [place] ([phone]) Per request, Rx for a new knee brace provided to patient in case she needs to get a new brace for replacement (7) Osteoarthritis of fingers of both hands: Code(s): M19.041 - Primary osteoarthritis, right hand; M19.042 - Primary osteoarthritis, left hand Plan: She is advised that her recent hand/finger symptoms are consistent with osteoarthritis Have advised her on regular hand & finger exercises to help keep her fingers from getting too stiff and this should also lead to less pain and discomfort (8) History of pelvic fracture: Comment: suspected pathologic fracture of the right superior inferior ramus and fractures of the iliac wing with peovic discontinuity - underwent ORIF of the right iliac wing with bone biopsy on 08/21/2019. Pathology was negative for metastatic disease. Code(s): Z87.81 - Personal history of (healed) traumatic fracture Plan: Patient continues to experience on and off pelvic pain and discomfort with increased activity and walking She has been certified permanently disabled by orthopedics, especially in terms of lifting (no lifting >15 pounds), walking and navigating stairs (only as tolerated) Follow up with [facility] as scheduled or as needed (9) Overactive bladder: Code(s): N32.81 - Overactive bladder Plan: Continue Myrbetriq 25 mg QD Follow up with urology as scheduled (10) Overweight (BMI 25.0-29.9): Code(s): E66.3 - Overweight Plan: Reinforced diet; exercise and weight loss are not really realistic or practical due to her physical issues but patient states that she tries to walk and stay active as much as she can tolerate Plan Follow up in 6 months Orders: Orders Complete Blood Count Auto Diff 6 Months D64.9 - Anemia, unspecified Comprehensive [place]. Panel Fast 6 Months E78.00 - Pure hypercholesterolemia, unspecified Vitamin B12 and Folate 6 Months E53.8 - Deficiency of other specified B group vitamins Lipid Panel 6 Months E78.00 - Pure hypercholesterolemia, unspecified Thyroid Stimulating Hormone 6 Months E03.9 - Hypothyroidism, unspecified Free T4 (Free Thyroxine) 6 Months E03.9 - Hypothyroidism, unspecified Vitamin D 25-OH Total 6 Months E55.9 - Vitamin D deficiency, unspecified UA CC w/rflx Micro + Cult 6 Months R30.0 - Dysuria Medications: Refilled [KNEE SUPPORT BRACE (right)] As directed 1 ea 0RF knee instability M23.50 - Chronic instability of knee, unspecified knee Coding Level of Care Code Est Pt Level 4 (12571) Diagnoses Pure hypercholesterolemia E78.00 Acquired hypothyroidism E03.9 History of uterine cancer Z85.42 Osteopenia, unspecified location M85.80 Osteopenia location: unspecified GERD without esophagitis K21.9 Chronic instability of right knee M23.51 Laterality: right Osteoarthritis of fingers of both hands M19.041; M19.042 History of pelvic fracture Z87.81 Overactive bladder N32.81 Overweight (BMI 25.0-29.9) E66.3
[2023-06-02 09:43] VITALS: BP 142/78; PULSE 64; O2SAT 98; BMI 28.3
[2023-06-02 10:17] VITALS: BP 140/86
== END 2023-06-02 10:24 | disposition home or self-care (01) ==
PROVIDERS: PCP Internal Medicine; Visit Provider Internal Medicine
DX: E78.00 Pure hypercholesterolemia, unspecified (principal); E03.9 Hypothyroidism, unspecified; Z85.42 Personal history of malignant neoplasm of other parts of uterus; M85.80 Other specified disorders of bone density and structure, unspecified site; K21.9 Gastro-esophageal reflux disease without esophagitis; M23.51 Chronic instability of knee, right knee; M19.041 Primary osteoarthritis, right hand; M19.042 Primary osteoarthritis, left hand; Z87.81 Personal history of (healed) traumatic fracture; N32.81 Overactive bladder; E66.3 Overweight
CPT/HCPCS: 99214

== ENCOUNTER 2023-08-02 10:15 | Outpatient (REF) | payer MEDICARE, MEDICAID, SELFPAY | END 2023-08-02 10:16 | disposition home or self-care (01) | LOC: HO.MAMMO 10:15 | PROVIDERS: PCP Internal Medicine; Visit Provider Internal Medicine | DX: Z12.31 Encounter for screening mammogram for malignant neoplasm of breast (principal) | CPT/HCPCS: 77063; 77067 ==

== ENCOUNTER → 2023-08-02 10:30 | Outpatient (BNV) | payer MEDICARE, MEDICAID, SELFPAY | PROVIDERS: PCP Internal Medicine; Visit Provider Radiology Diagnostic Radiology | DX: Z12.31 Encounter for screening mammogram for malignant neoplasm of breast (principal) | CPT/HCPCS: 77063; 77067 ==

== ENCOUNTER 2023-11-24 08:58 | Outpatient (REF) | payer MEDICARE, MEDICAID, SELFPAY ==
[2023-11-24 09:19] LABS: MANUAL DIFF FLAG NO
[2023-11-24 10:10] LABS: Basophils Percent Auto 0.3 % (0-2); Eosinophils Absolute Auto 0.3 X10*3/uL (0.0-0.4); Eosinophils Percent Auto 4.3 % (0-4); Hematocrit 38.5 % (37.0-47.0); Imm Gran Abs Auto 0.04 X10*3/uL (0.00-0.03); Imm Gran Pct Auto 0.6 % (0.0-0.4); Lymphocytes Absolute Auto 0.8 X10*3/uL (1.2-4.9); Lymphocytes Percent Auto 11.5 % (20-40); Mean Corpuscular HGB Conc 33.8 g/dl (31.0-35.0); Mean Corpuscular Hemoglobin 32.7 pg (27.0-33.0); Mean Platelet Volume 9.6 fL (9.4-12.3); Monocytes Absolute Auto 0.6 X10*3/uL (0.1-1.2); Monocytes Percent Auto 9.3 % (2-11); Neutrophils Absolute Auto 4.9 x10*3/uL (2.0-8.3); Platelet Count 309 X10*3/uL (160-400); Red Blood Count 3.97 X10*6/uL (4.20-5.50); Red Cell Distribution Width 13.1 % (11.0-16.0); White Blood Count 6.6 X10*3/uL (4.8-10.8)
[2023-11-24 10:23] LABS: Appearance Urine Clear; Color Urine Yellow; Glucose Urine UA Negative (Negative); Leukocyte Esterase Urine Negative (Negative); Nitrite Urine Negative (Negative); PH 7.5 (5.0-9.0); Specific Gravity - Urine <= 1.005 (1.005-1.025); Urine Blood Negative (Negative); Urine Ketones Negative (Negative); Urine Protein Negative (Neg-Trace)
[2023-11-24 10:43] LABS: Alanine Aminotransferase 17 U/L (0-31); Albumin Level 3.9 g/dL (3.5-5.0); Alkaline Phosphatase 68 U/L (39-117); Anion Gap 11 (12-20); Aspartate Amino Transferase 22 U/L (5-31); Bilirubin Total 0.5 mg/dL (0.0-1.0); Blood Urea Nitrogen 10 mg/dL (9-16); Calcium 9.5 mg/dL (8.4-10.2); Carbon Dioxide 28 mmol/L (22-29); Chloride 102 mmol/L (96-108); Cholesterol 179 mg/dL (<200); Estimated Glomerular Filt Rate > 60; Glucose Fasting 93 mg/dL (60-99); HDL Cholesterol 56 mg/dL (>40); LDL Cholesterol Calculated 106 mg/dL (<100); Potassium 4.3 mmol/L (3.3-5.1); Sodium 137 mmol/L (135-145); Total Protein 7.3 g/dL (6.5-8.0); Triglycerides 86 mg/dL (<150)
[2023-11-24 11:00] LABS: Free T4 (Free Thyroxine) 1.03 ng/dL (0.71-1.85); Thyroid Stimulating Hormone 0.75 uIU/mL (0.32-4.0); Vitamin D 25-OH Total 45.2 ng/mL (>30)
[2023-11-24 11:03] LABS: Folate 15.5 ng/mL (> or = 4.0); Vitamin B12 280 pg/mL (200-900)
== END 2023-11-24 08:59 | disposition home or self-care (01) ==
LOC: HO.LAB 08:58
PROVIDERS: PCP Internal Medicine; Visit Provider Internal Medicine
DX: D64.9 Anemia, unspecified (principal); E53.8 Deficiency of other specified B group vitamins; E78.00 Pure hypercholesterolemia, unspecified; R30.0 Dysuria; E03.9 Hypothyroidism, unspecified; E55.9 Vitamin D deficiency, unspecified
CPT/HCPCS: 36415; 80053; 80061; 81003; 82306; 82607; 82746; 84439; 84443; 85025

== ENCOUNTER 2023-12-02 09:33 | Outpatient (AMB) | payer MEDICARE, MEDICAID, SELFPAY ==
--- NOTE | 2023-12-02 09:54 | MHC.PC.OV ---
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 Accompanied by: Self / Same As Patient Allergies Sulfa (Sulfonamide Antibiotics) Allergy (Unknown, Verified 12/02/23 10:16) Anaphylaxis codeine Adverse Reaction (Intermediate, Verified 12/02/23 10:16) Nausea Medication List - Last Reconciled 12/02/23 by Heri Blanco MD calcium carbonate (Calcium 600) 600 mg PO DAILY [KNEE SUPPORT BRACE (right) As directed] levothyroxine 50 mcg PO QAM 90 days mirabegron ER (Myrbetriq) 25 mg PO DAILY 90 days multivitamin 1 tab PO DAILY psyllium seed (sugar) (Metamucil (sugar) oral powder) 1 tsp PO DAILY Tobacco use date assessed: 12/02/23 Fall risk assessment: No Falls in past year Last assessed Fall Risk: 12/02/23 Dental Screening Dental Screen Date: 12/02/23 Did you have a dental visit in the last 12 months?: Yes Did you have a dental problem in the last 6 months where you did not have access to dental care?: No Was dental information given to patient?: Patient has dentist HPI 6mth f/u HPI Details Patient comes in today for her follow up visit States that she feels okay She denies any headaches or dizziness Denies any chest pains, no SOB No nausea/vomiting, no abdominal pain No change in bowel habits noted She currently still wears a brace on her right knee, which she feels is helping her a lot in keeping her knee from flaring up (pain) and helping her stability She had her follow up labs done last week - to discuss her results FOR[facility]LY [facility], [facility] Medical History Osteoarthritis of fingers of both hands Overweight (BMI 25.0-29.9) Osteopenia COVID-19 vaccine series declined Overactive bladder GERD without esophagitis Pure hypercholesterolemia Endometrioid carcinoma (~01/2018) Acquired hypothyroidism Post-menopausal Surgical History History of colonoscopy History of hysterectomy History of pelvic surgery (~08/21/19) Family History Mother No problems noted. Father No problems noted. Social History Household Members Other:: [place] [facility] Housing: Other Housing Other:: [place] [facility] Are you a primary residential care officer to a significant other at home: No Do you presently have visiting nurse or other home services: No Alcohol intake: never Patient Tobacco Use Status: Never used Tobacco e-Cigarette/Vaping Use: Never Used Second Hand Smoke Exposure: Yes service: No Current occupational status: retired and disabled Cognitive needs: Yes (walker) Hearing needs: No Vision needs: Yes Questionnaire PHQ-9 Over the last 2 weeks, how often have you been bothered by any of the following problems? 1. Little interest or pleasure in doing things: not at all 2. Feeling down, depressed, or hopeless: not at all 3. Trouble falling or staying asleep, or sleeping too much: not at all 4. Feeling tired or having little energy: not at all 5. Poor appetite or overeating: not at all 6. Feeling bad about yourself - or that you are a failure or have let yourself or your family down: not at all 7. Trouble concentrating on things, such as reading the newspaper or watching television: not at all 8. Moving or speaking so slowly that other people could have noticed. Or the opposite - being so fidgety or restless that you have been moving around a lot more than usual: not at all 9. Thoughts that you would be better off or of hurting yourself in some way: not at all Total score: 0 Depression Screening Interpretation: Negative Depression Screening Done: Yes 28684 - PHQ-9 Billing: Yes Source: Developed by Drs. William Lee, Ruth Pena, Mason Gao and colleagues, with an educational mitchell from [employer]. Thrive Questionnaire Date Thrive assessed: 12/02/23 I am a: Patient What is your living situation today?: I have a steady place to live Within the past 12 months, did the food you bought not last and you didn't have the money to get more?: Never true Within the past 12 months, did you worry whether your food would run out before you got money to buy more?: Never true Do you have trouble paying for medicines?: No Do you have trouble getting transportation to medical appointments?: No Do you have trouble paying your heating and electricity bill?: No Do you have trouble taking care of your child, family member or friend?: No Do you have trouble with day-to-day activities such as bathing, preparing meals, shopping, managing finances, etc.?: No Are you currently unemployed and looking for a job?: No Are you interested in more education?: No Please select the resources that you would like help with: None Currently or been in a relationship where the following occur: No concerns reported THRIVE Score: 0 AUDIT C Alcohol Use Questionnaire (AUDIT-C) 1. How often do you have a drink containing alcohol?: Never 3. How often do you have six or more drinks on one occasion?: Never Total Score: 0 Score Reviewed/Action Taken: Yes DEISY-7 AMB Questionnaire DEISY-7 Date DEISY - 7 assessed: 12/02/23 Feeling nervous, anxious, or on edge: 0 = Not at all Not being able to stop or control worryin = Not at all Worrying too much about different things: 0 = Not at all Trouble relaxin = Not at all Being so restless that it is hard to sit still: 0 = Not at all Becoming easily annoyed or irritable: 0 = Not at all Feeling afraid as if something awful might happen: 0 = Not at all Total DEISY-7 score (0-4 normal; 5-9 mild; 10-14 moderate; 15-21 severe): 0 Source: Developed by Drs. William Lee, Ruth Pena, Mason Gao and colleagues, with an educational mitchell from [employer]. Review of Systems Const Denies chills, Denies fatigue, Denies fever(s) and Denies headache(s) ENT Denies dysphagia, Denies dizziness, Denies otalgia, Denies headache(s), Denies neck pain, Denies odynophagia and Denies sore throat Card Denies chest pain, Denies palpitations and Denies dyspnea Resp Denies chest congestion, Denies cough and Denies dyspnea GI Denies abdominal pain, Denies constipation, Denies dysphagia, Denies heartburn, Denies diarrhea, Denies nausea, Denies odynophagia and Denies vomiting Denies difficulty voiding, Denies nocturia, Denies dysuria and Denies urinary urgency Musc Details: right knee feels weak/unstable but having a knee brace on has helped a lot; c/o occasional pelvic pain, usually only with increased activity Denies back pain, Reports arthralgias (right knee, on and off - feels unstable), Denies neck pain and Reports stiffness (in fingers of both hands) Skin/Breast Denies rash Neuro Denies dizziness and Denies headache(s) Endo Denies fatigue and Denies palpitations Physical exam (Primary Care) Vital Signs: Last Vital Signs Pulse 76 12/02/23 09:56 BP 122/78 12/02/23 09:56 Pulse Ox 96 12/02/23 09:56 Oxygen Delivery Method Room Air 12/02/23 09:56 BMI result Body Mass Index 27.7 Tobacco/Smoking Status: Tobacco use Status Tobacco use date assessed 12/02/23 12/02/23 10:00 Patient Tobacco Use Status Never used Tobacco 12/02/23 10:00 e-Cigarette/Vaping Use Never Used 12/02/23 10:00 PHQ-9: PHQ-9 Score PHQ-9: Total score 0 12/02/23 10:31 Depression Screening Interpretation: Negative Thrive Assessment: Date of Thrive Assessment Date Thrive assessed 12/02/23 12/02/23 10:00 Currently or been in a relationship where the following occur: No concerns reported Const General: no acute distress and alert HENMT Ears: TM's normal bilaterally and EAC's normal Throat: Yes posterior oropharynx normal and Yes tonsils normal (no TP congestion noted) Neck Neck: Yes no lymphadenopathy and Yes supple Thyroid: Thyroid normal Resp Auscultation: clear to auscultation bilaterally, no rales and no wheezes Cardio Rate: regular rate Rhythm: regular rhythm Heart sounds: no murmurs GI Palpation (GI): Soft to palpation and nontender Auscultation: normal bowel sounds General: Yes no CVA tenderness Back/Spine/Pelvis Back: no CVA tenderness Cervical Spine: No Cervical spine tenderness Thoracic/Lumbar Spine: No lumbar spinal tenderness Skin Rashes: no rashes Extrem General: Yes no clubbing, cyanosis or edema Right upper extremity: normal to inspection Left upper extremity: normal to inspection Right lower extremity: knee (currently has a knee brace on, which she feels help a lot) Details: tenderness Results Reviewed Results Reviewed: Laboratory Tests 11/24/23 11/24/23 09:14 09:15 WBC 6.6 Hgb 13.0 Hct 38.5 Plt Count 309 Sodium 137 Potassium 4.3 Creatinine 0.60 Estimated GFR > 60 Fasting Glucose 93 Calcium 9.5 AST 22 ALT 17 Triglycerides 86 Cholesterol 179 LDL Cholesterol, Calc 106 H HDL Cholesterol 56 Vitamin B12 280 25-OH Vitamin D Total 45.2 TSH 0.75 Free T4 1.03 Urine pH 7.5 Ur Specific [place] <= 1.005 Urine Protein Negative Urine Glucose (UA) Negative Urine Blood Negative Urine Nitrite Negative Ur Leukocyte Esterase Negative Coding Level of Care Code Est Pt Level 4 (88974) Diagnoses Pure hypercholesterolemia E78.00 Acquired hypothyroidism E03.9 History of uterine cancer Z85.42 Osteopenia, unspecified location M85.80 Osteopenia location: unspecified GERD without esophagitis K21.9 Chronic instability of right knee M23.51 Laterality: right Osteoarthritis of fingers of both hands M19.041; M19.042 History of pelvic fracture Z87.81 Overactive bladder N32.81 Overweight (BMI 25.0-29.9) E66.3 Assessment & Plan Assessment & Plan (1) Pure hypercholesterolemia: Code(s): E78.00 - Pure hypercholesterolemia, unspecified Category: Medical Plan: Results of her labs done last week reviewed and discussed with patient - her cholesterol numbers are at or close to goal Reinforced low cholesterol diet (2) Acquired hypothyroidism: Code(s): E03.9 - Hypothyroidism, unspecified Category: Medical Plan: Her TFTs were normal on her labs done last week Continue Levothyroxine 50 mcg QD (3) History of uterine cancer: Comment: (+) Endometrioid adenocarcinoma of uterus - diagnosed in 01/2018 S/P total laparoscopic hysterectomy, bilateral salpingo-oophorectomy, and sentinel pelvic lymph node dissection via da [place] by Dr. Mota Patient completed radiation therapy (WPRT) a couple of years ago Code(s): Z85.42 - Personal history of malignant neoplasm of other parts of uterus Category: Medical Plan: Follow up with gynecologic surgery as scheduled for continuing surveillance (4) Osteopenia: Code(s): M85.80 - Other specified disorders of bone density and structure, unspecified site Category: Medical Qualifiers: Osteopenia location: unspecified Qualified Code(s): M85.80 - Other specified disorders of bone density and structure, unspecified site Plan: BMD done on 08/21/2020 revealed (+) osteopenia with no significant change from previous BMD in 2010 Patient is encouraged to continue taking her daily Vitamin D and Calcium supplements and to continue exercising regularly as tolerated Reinforced fall precautions Will send her now for repeat BMD for follow up (5) GERD without esophagitis: Code(s): K21.9 - Gastro-esophageal reflux disease without esophagitis Category: Medical Plan: Dietary restrictions reinforced (6) Chronic knee instability: Comment: She gets her knee brace from [facility] at [address] [place] [address] in [place], [place] ([phone]) Code(s): M23.50 - Chronic instability of knee, unspecified knee Category: Medical Qualifiers: Laterality: right Qualified Code(s): M23.51 - Chronic instability of knee, right knee Plan: Patient continues to use her knee brace to help stabilize her knee and improve her mobility (7) Osteoarthritis of fingers of both hands: Code(s): M19.041 - Primary osteoarthritis, right hand; M19.042 - Primary osteoarthritis, left hand Category: Medical Plan: She has been advised that her recent hand/finger symptoms are consistent with osteoarthritis Have advised her as well on regular hand & finger exercises to help keep her fingers from getting too stiff and this should also lead to less pain and discomfort (8) History of pelvic fracture: Comment: suspected pathologic fracture of the right superior inferior ramus and fractures of the iliac wing with peovic discontinuity - underwent ORIF of the right iliac wing with bone biopsy on 08/21/2019. Pathology was negative for metastatic disease. Code(s): Z87.81 - Personal history of (healed) traumatic fracture Category: Medical Plan: Patient continues to experience on and off pelvic pain and discomfort with increased activity and walking She has been certified permanently disabled by orthopedics, especially in terms of lifting (no lifting >15 pounds), walking and navigating stairs (only as tolerated) Follow up with [facility] as scheduled or as needed (9) Overactive bladder: Code(s): N32.81 - Overactive bladder Category: Medical Plan: Continue Myrbetriq 25 mg QD Follow up with urology as scheduled (10) Overweight (BMI 25.0-29.9): Code(s): E66.3 - Overweight Category: Medical Plan: Reinforced diet; exercise and weight loss are not really realistic or practical due to her physical issues but patient states that she tries to walk and stay active as much as she can tolerate Plan Follow up in 6 months Orders: Orders XR DEXA axial skeleton Today M85.80 - Other specified disorders of bone density and structure, unspecified site, Z78.0 - Asymptomatic menopausal state
[2023-12-02 09:56] VITALS: BP 122/78; PULSE 76; O2SAT 96; BMI 27.7
== END 2023-12-02 10:34 | disposition home or self-care (01) ==
PROVIDERS: PCP Internal Medicine; Visit Provider Internal Medicine
DX: E78.00 Pure hypercholesterolemia, unspecified (principal); E03.9 Hypothyroidism, unspecified; Z85.42 Personal history of malignant neoplasm of other parts of uterus; M85.80 Other specified disorders of bone density and structure, unspecified site; K21.9 Gastro-esophageal reflux disease without esophagitis; M23.51 Chronic instability of knee, right knee; M19.041 Primary osteoarthritis, right hand; M19.042 Primary osteoarthritis, left hand; Z87.81 Personal history of (healed) traumatic fracture; N32.81 Overactive bladder; E66.3 Overweight

== ENCOUNTER → 2023-12-02 09:33 | Outpatient (BNVA) | payer MEDICARE, MEDICAID, SELFPAY | PROVIDERS: PCP Internal Medicine; Visit Provider Internal Medicine | DX: E78.00 Pure hypercholesterolemia, unspecified (principal); E03.9 Hypothyroidism, unspecified; M85.80 Other specified disorders of bone density and structure, unspecified site; K21.9 Gastro-esophageal reflux disease without esophagitis; M23.51 Chronic instability of knee, right knee; M19.041 Primary osteoarthritis, right hand; M19.042 Primary osteoarthritis, left hand; E66.3 Overweight; Z85.42 Personal history of malignant neoplasm of other parts of uterus | CPT/HCPCS: 96127; 99212 ==

== ENCOUNTER 2024-06-13 09:43 | Outpatient (AMB) | payer MEDICARE, MEDICAID, SELFPAY ==
[2024-06-13 09:50] VITALS: BP 126/80; PULSE 72; O2SAT 97; BMI 27.8
--- NOTE | 2024-06-13 09:50 | A.OFFPC_ITS ---
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 Accompanied by: Self / Same As Patient Allergies Sulfa (Sulfonamide Antibiotics) Allergy (Unknown, Verified 06/13/24 10:06) Anaphylaxis codeine Adverse Reaction (Intermediate, Verified 06/13/24 10:06) Nausea Medication List - Last Reconciled 06/13/24 by Heri Blanco MD calcium carbonate (Calcium 600) 600 mg PO DAILY [KNEE SUPPORT BRACE (right) As directed] levothyroxine 50 mcg PO QAM 90 days mirabegron ER (Myrbetriq) 25 mg PO DAILY 90 days multivitamin 1 tab PO DAILY psyllium seed (sugar) (Metamucil (sugar) oral powder) 1 tsp PO DAILY Tobacco use date assessed: 06/13/24 Fall risk assessment: No Falls in past year Last assessed Fall Risk: 06/13/24 Dental Screening Dental Screen Date: 06/13/24 Did you have a dental visit in the last 12 months?: Yes Did you have a dental problem in the last 6 months where you did not have access to dental care?: No Was dental information given to patient?: Patient has dentist HPI hyperlipidemia, hypothyroidism, GERD, OAB HPI Details Patient comes in today for her follow up visit for her hyperlipidemia, hypothyroidism and OA States that she feels okay She denies any headaches or dizziness Denies any chest pains, no SOB No nausea/vomiting, no abdominal pain No change in bowel habits noted She is still wearing a brace on her right knee - she feels that the brace helps her a lot in keeping her knee from flaring up (pain) and helping improve her stability when she is walking and moving about She needs both of her Rx refilled PFSH Medical History Osteoarthritis of fingers of both hands Overweight (BMI 25.0-29.9) Osteopenia COVID-19 vaccine series declined Overactive bladder GERD without esophagitis Pure hypercholesterolemia Endometrioid carcinoma (~01/2018) Acquired hypothyroidism Post-menopausal Surgical History History of colonoscopy History of hysterectomy History of pelvic surgery (~08/21/19) Family History Mother No problems noted. Father No problems noted. Social History Household Members Other:: lives in [facility] Housing: Other Housing Other:: lives in [facility] Are you a primary healthcare administrative assistant to a significant other at home: No Do you presently have visiting nurse or other home services: No Alcohol intake: never Patient Tobacco Use Status: Never used Tobacco e-Cigarette/Vaping Use: Never Used Second Hand Smoke Exposure: Yes service: No Current occupational status: retired and disabled Cognitive needs: Yes (walker) Hearing needs: No Vision needs: Yes Questionnaire PHQ-9 Over the last 2 weeks, how often have you been bothered by any of the following problems? 1. Little interest or pleasure in doing things: not at all 2. Feeling down, depressed, or hopeless: not at all 3. Trouble falling or staying asleep, or sleeping too much: not at all 4. Feeling tired or having little energy: not at all 5. Poor appetite or overeating: not at all 6. Feeling bad about yourself - or that you are a failure or have let yourself or your family down: not at all 7. Trouble concentrating on things, such as reading the newspaper or watching television: not at all 8. Moving or speaking so slowly that other people could have noticed. Or the opposite - being so fidgety or restless that you have been moving around a lot more than usual: not at all 9. Thoughts that you would be better off or of hurting yourself in some way: not at all Total score: 0 Depression Screening Interpretation: Negative Depression Screening Done: Yes 01609 - PHQ-9 Billing: Yes Source: Developed by Drs. William Lee, Ruth Pena, aMson Gao and colleagues, with an educational mitchell from [facility]. Thrive Questionnaire Date Thrive assessed: 06/13/24 I am a: Patient What is your living situation today?: I have a steady place to live Within the past 12 months, did the food you bought not last and you didn't have the money to get more?: Never true Within the past 12 months, did you worry whether your food would run out before you got money to buy more?: Never true Do you have trouble paying for medicines?: No Do you have trouble getting transportation to medical appointments?: No Do you have trouble paying your heating and electricity bill?: No Do you have trouble taking care of your child, family member or friend?: No Do you have trouble with day-to-day activities such as bathing, preparing meals, shopping, managing finances, etc.?: No Are you currently unemployed and looking for a job?: No Are you interested in more education?: No Please select the resources that you would like help with: None Currently or been in a relationship where the following occur: No concerns reported THRIVE Score: 0 AUDIT C Alcohol Use Questionnaire (AUDIT-C) 1. How often do you have a drink containing alcohol?: Never 3. How often do you have six or more drinks on one occasion?: Never Total Score: 0 Score Reviewed/Action Taken: Yes DEISY-7 AMB Questionnaire DEISY-7 Date DEISY - 7 assessed: 06/13/24 Feeling nervous, anxious, or on edge: 0 = Not at all Not being able to stop or control worryin = Not at all Worrying too much about different things: 0 = Not at all Trouble relaxin = Not at all Being so restless that it is hard to sit still: 0 = Not at all Becoming easily annoyed or irritable: 0 = Not at all Feeling afraid as if something awful might happen: 0 = Not at all Total DEISY-7 score (0-4 normal; 5-9 mild; 10-14 moderate; 15-21 severe): 0 Source: Developed by Drs. William Lee, Ruth Pena, Mason Gao and colleagues, with an educational mitchell from [facility]. Review of Systems Const Denies chills, Denies fatigue, Denies fever(s) and Denies headache(s) ENT Denies dysphagia, Denies dizziness, Denies otalgia, Denies headache(s), Denies neck pain, Denies odynophagia and Denies sore throat Card Denies chest pain, Denies palpitations and Denies dyspnea Resp Denies chest congestion, Denies cough and Denies dyspnea GI Denies abdominal pain, Denies constipation, Denies dysphagia, Denies heartburn, Denies diarrhea, Denies nausea, Denies odynophagia and Denies vomiting Denies difficulty voiding, Denies nocturia, Denies dysuria and Denies urinary urgency Musc Details: right knee feels weak/unstable but having a knee brace on helps a lot; c/o occ asional pelvic pain, usually only with increased activity Denies back pain, Reports arthralgias (right knee, on and off - feels unstable), Denies neck pain and Reports stiffness (in fingers of both hands) Skin/Breast Denies rash Neuro Denies dizziness and Denies headache(s) Endo Denies fatigue and Denies palpitations Physical exam (Primary Care) Vital Signs: Last Vital Signs Pulse 72 06/13/24 09:50 BP 126/80 06/13/24 09:50 Pulse Ox 97 06/13/24 09:50 Oxygen Delivery Method Room Air 06/13/24 09:50 BMI result Body Mass Index 27.8 Tobacco/Smoking Status: Tobacco use Status Tobacco use date assessed 06/13/24 06/13/24 09:55 Patient Tobacco Use Status Never used Tobacco 06/13/24 09:55 e-Cigarette/Vaping Use Never Used 06/13/24 09:55 PHQ-9: PHQ-9 Score PHQ-9: Total score 0 06/13/24 09:55 Depression Screening Interpretation: Negative Thrive Assessment: Date of Thrive Assessment Date Thrive assessed 06/13/24 06/13/24 09:55 Currently or been in a relationship where the following occur: No concerns reported Const General: no acute distress and alert HENMT Ears: TM's normal bilaterally and EAC's normal Throat: Yes posterior oropharynx normal and Yes tonsils normal (no TP congestion noted) Neck Neck: Yes supple and No lymphadenopathy Thyroid: Thyroid normal Resp Auscultation: clear to auscultation bilaterally, no rales and no wheezes Cardio Rate: regular rate Rhythm: regular rhythm Heart sounds: no murmurs GI Palpation (GI): Soft to palpation and nontender Auscultation: normal bowel sounds General: Yes no CVA tenderness Back/Spine/Pelvis Back: no CVA tenderness Cervical Spine: No Cervical spine tenderness Thoracic/Lumbar Spine: No lumbar spinal tenderness Skin Rashes: no rashes Extrem General: Yes no clubbing, cyanosis or edema Right lower extremity: knee (currently has a knee brace on, which she feels help a lot) Details: tenderness Coding Level of Care Code Est Pt Level 4 (64116) Diagnoses Pure hypercholesterolemia E78.00 Acquired hypothyroidism E03.9 History of uterine cancer Z85.42 Osteopenia, unspecified location M85.80 Osteopenia location: unspecified GERD without esophagitis K21.9 Chronic instability of right knee M23.51 Laterality: right Osteoarthritis of fingers of both hands M19.041; M19.042 History of pelvic fracture Z87.81 Overactive bladder N32.81 Overweight (BMI 25.0-29.9) E66.3 Additional Codes PHQ-9 - 00494 - PHQ-9 Billing: Yes ([id number]) Assessment & Plan Assessment & Plan (1) Pure hypercholesterolemia: Code(s): E78.00 - Pure hypercholesterolemia, unspecified Category: Medical Plan: Reinforced low cholesterol diet Will have her recheck her labs and fasting lipids in 6 months for follow up (2) Acquired hypothyroidism: Code(s): E03.9 - Hypothyroidism, unspecified Category: Medical Plan: Continue Levothyroxine 50 mcg QD Will also recheck her TFTs in 6 months (3) History of uterine cancer: Comment: (+) Endometrioid adenocarcinoma of uterus - diagnosed in 01/2018 S/P total laparoscopic hysterectomy, bilateral salpingo-oophorectomy, and sentinel pelvic lymph node dissection via da [place] by Dr. Mota Patient completed radiation therapy (WPRT) a couple of years ago Code(s): Z85.42 - Personal history of malignant neoplasm of other parts of uterus Category: Medical Plan: Follow up with gynecologic surgery as scheduled for continuing surveillance (4) Osteopenia: Code(s): M85.80 - Other specified disorders of bone density and structure, unspecified site Category: Medical Qualifiers: Osteopenia location: unspecified Qualified Code(s): M85.80 - Other specified disorders of bone density and structure, unspecified site Plan: BMD done on 08/21/2020 revealed (+) osteopenia with no significant change from previous BMD in 2010 Patient is encouraged to continue taking her daily Vitamin D and Calcium supplements and to continue exercising regularly as tolerated Reinforced fall precautions Repeat BMD for follow up was ordered at her last visit but she has not been sc heduled yet so far - will reorder repeat BMD (5) GERD without esophagitis: Code(s): K21.9 - Gastro-esophageal reflux disease without esophagitis Category: Medical Plan: Dietary restrictions reinforced (6) Chronic knee instability: Comment: She gets her knee brace from [facility] at [address] [place] [address] in [place], [place] ([phone]) Code(s): M23.50 - Chronic instability of knee, unspecified knee Category: Medical Qualifiers: Laterality: right Qualified Code(s): M23.51 - Chronic instability of knee, right knee Plan: Patient continues to use her knee brace to help stabilize her knee and improve her mobility (7) Osteoarthritis of fingers of both hands: Code(s): M19.041 - Primary osteoarthritis, right hand; M19.042 - Primary osteoarthritis, left hand Category: Medical Plan: She has been advised that her recent hand/finger symptoms are consistent with osteoarthritis Have advised her as well on regular hand & finger exercises to help keep her fin gers from getting too stiff and this should also lead to less pain and discomfort (8) History of pelvic fracture: Comment: suspected pathologic fracture of the right superior inferior ramus and fractures of the iliac wing with peovic discontinuity - underwent ORIF of the right iliac wing with bone biopsy on 08/21/2019. Pathology was negative for metastatic disease. Code(s): Z87.81 - Personal history of (healed) traumatic fracture Category: Medical Plan: Patient continues to experience on and off pelvic pain and discomfort with increased activity and walking She has been certified permanently disabled by orthopedics, especially in terms of lifting (no lifting >15 pounds), walking and navigating stairs (only as tolerated) Follow up with [facility] as scheduled or as needed (9) Overactive bladder: Code(s): N32.81 - Overactive bladder Category: Medical Plan: Continue Myrbetriq 25 mg QD Follow up with urology as scheduled (10) Overweight (BMI 25.0-29.9): Code(s): E66.3 - Overweight Category: Medical Plan: Reinforced diet; exercise and weight loss are not really realistic or practical due to her physical issues but patient states that she tries to walk and stay active as much as she can tolerate Plan Follow up in 6 months Orders: Orders Complete Blood Count Auto Diff 6 Months D64.9 - Anemia, unspecified Comprehensive [place]. Panel Fast 6 Months E78.00 - Pure hypercholesterolemia, unspecified Lipid Panel 6 Months E78.00 - Pure hypercholesterolemia, unspecified Free T4 (Free Thyroxine) 6 Months E03.9 - Hypothyroidism, unspecified XR DEXA axial skeleton Today Z78.0 - Asymptomatic menopausal state UA CC w/rflx Micro + Cult 6 Months R30.0 - Dysuria Thyroid Stimulating Hormone 6 Months E03.9 - Hypothyroidism, unspecified Vitamin D 25-OH Total 6 Months E55.9 - Vitamin D deficiency, unspecified Vitamin B12 and Folate 6 Months E53.8 - Deficiency of other specified B group vitamins Medications: Refilled levothyroxine 50 mcg PO QAM 90 days 90 tabs 3RF mirabegron ER (Myrbetriq) 25 mg PO DAILY 90 days 90 tabs 3RF
--- OUTSIDE RECORDS SUMMARY | 2024-06-13 10:51 | XMS_ITS | Patient Health Record ---
Author Organization [facility] Address [address] [place] [address] Care Team Providers Care Photoengraving Etcher Name Role Phone Franics VASQUEZ, [place] Primary Care Provider Brook Chaney Unavailable [phone] Cristofer Cobos Unavailable [phone] Allergies Allergen (clinical drug ingredient) Drug/Non Drug Allergy documented on EMR Reaction Allergy Type Onset Date Status codeine Codeine nausea Drug Allergy Active Penicillin Unknown Drug Allergy Active Substance with sulfonamide structure and antibacterial mechanism of action (substance) Sulfa Antibiotics rash Drug Allergy Active Reason For Referral No Information Medications Medication SIG (Take, Route, Frequency, Duration) Notes Start Date End Date Status Multivitamin Active [facility] as directed A ctive [facility] as directed 06/27/2021 Active Tylenol Not-Taking Calcium Not-Taking Ibuprofen PRN Not-Taking [facility] as directed 05/01/2014 Not-Taking Levothyroxine Sodium 50 MCG 1 tablet in the morning on an empty stomach Orally Once a day Active [facility] . . . please accomodat e for painful right 5th mt head and base for . 01/01/2015 Not-Takin g Muroptic-5 Active [facility] as directed 09/01/2016 Not-Taking Myrbetriq 25 MG 1 tablet Orally Once a day Active [facility] as directed N ot-Taking Metamucil PRN Active immodium Not-Taking Immunizations Vaccine Route Administration Date Status Comme nts Influenza Unknown 12/08/2018 Administered Social History Alcohol Screen Question Answer Notes Did you have a drink containing alcohol in the p ast year? No Points 0 Interpretation Negative Tobacco use other than smoking: Question Answer Notes Are you an other tobacco user? No Problems Problem Type SNOMED Code ICD Code Onset Dates Problem Status W/U Status Risk Notes Problem Pain in right foot ([id number]) Pain in right foot (M79.671) Active confirmed Problem Localized, primary osteoarthritis of the ankle and/or foot ([id number]) Primary osteoarthrit is, right ankle and foot (M19.071) Active confirmed Vital Signs Height 5 ft 1 in in 10/26/2023 Weight 138 lbs 10/26/2023 BMI 26.07 kg/m2 10/26/2023 Encounters Encounter Location Date Provider Diagnosis [facility] [address] [facility] [address] [place] [address] 10/26/2023 Cristofer Cobos Tinea unguium B35.1 ; Pain in right foot M79.671 ; Pain in right toe(s) M79.674 ; Pain in left toe(s) M79.675 ; Ingrowing nail L60.0 ; Metatarsalgia, right foot M77.41 and Primary osteoarthritis, right ankle and foot M19.071 Assessments Encounter Date Diagnosis (ICD Code) Assessment Notes Treatment Notes Treatment Clinical Notes Section Notes 10/26/2023 Tinea unguium (ICD-10 - B35.1) 10/26/2023 Pain in right foot (ICD-10 - M79.671) 10/26/2023 Pain in right toe(s) (ICD-10 - M79.674) 10/26/2023 Pain in left toe(s) (ICD-10 - M79.675) 10/26/2023 Ingrowing nail (ICD-10 - L60.0) 10/26/2023 Metatarsalgia, right foot (ICD-10 - M77.41) 10/26/2023 Primary osteoarthritis, right ankle and foot (ICD-10 - M19.071) Plan Of Treatment Pending Test Test Name Order Date X ray : Foot, right 2V 10/10/2013 [id number] NAIL, 1-09/01/2016 46904-KHGDKFK NAIL, -12/11/2016 21466-BPEPHBE NAIL, -04/13/2017 13667-BMCBYRU NAIL, -08/24/2017 71426-GUYZILS NAIL, 1-5 12/21/2017 74664-Eguc Destruction, -14 12/21/2017 41834-Vkju Destruction, -14 08/24/2017 45553-Rtzi Destruction, -14 04/13/2017 58101-Lgyq Destruction, -14 12/11/2016 81178-Eeffyyml Plate 12/19/2013 10066-Mmrwejqy Plate 04/20/2014 67853-Ccadtrbf Plate 08/28/2014 94792-Decyojum Plate 10/10/2013 84093- Debride <25 sq cm 08/28/2014 Next Appt Details Provider Name:Brook Villar kevin, 06/20/2024 10:00:00 AM, [address] [facility], [facility] [address], [place], [address], Insurance Providers Payer Name Payer Address Payer Phone Subscriber Number Group Number Insured Name Patient Relationship to Insured Coverage Start Date Coverage End Date Medicare National [employer] [address] [facility] [place] [address] [id number] Jackie Hoover Self - patient is the insured Medical (General) History Medical History History ICD Code Arthritis Back,Hip,and Knee pain Cataracts Chicken pox Measles Thyroid disorder Surgical History Surgery Date(Month/Year) cataract surgery both eyes hysterectomy 01/19/2018 colonoscopy polyp, benign Hospitalization History Reason Date(Month/Year) [facility] 09/20/2020 Radiation treatment 04/2018 [facility] Pelvic cancer 01/19/18 Flu shot 12/31/14
--- OUTSIDE RECORDS SUMMARY | 2024-06-13 10:52 | XMS_ITS ---
Author Organization [facility] Address [address] [place] [address] Care Team Providers Care Kosher Sealer Name Role Phone Heri Blanco MD Primary Care Provider Unava Brook Mclain [phone] Barker Encounters Encounter Location Date Provider Diagnosis [address] [address] 04/25/2024 Brook Milton Plan Of Treatment Next Appt Details Provider Name:Brook brown, 06/20/2024 10:00:00 AM, [address] [place] [address], [phone], Progress Notes * Stella PLUNKETTan FDOB: (79 yo F)Acc No.[id number]:04/25/2024 Progress Note Patient:?Jackie PLUNKETT Provider:?Brook Milton DPM :1945???Age:79 Y???Sex:Female D ate:04/25/2024 Address:[address] [place] [id number] Pcp:Heri Blanco MD Subjective: * Chief Complaints: * ???1. Dr Barker. * Medical History:? Objective: * Vitals:? Assessment: Plan: * Treatment: * Images: * The named appointment provid er may or may not be the originator of this progress note, and it is not deemed complete until electronically signed by the appointment provider. Sign off status: Pending * Provider:?Brook Milton DPM Date:?0 04/25/2024 Generated for Joselo adame/Herve/Farnaz on:?06/13/2024 10:51 AM EDT
--- OUTSIDE RECORDS SUMMARY | 2024-06-13 10:52 | XMS_ITS ---
Author Organization [facility] Address [address] [place] [address] Care Team Providers Care Outpatient Pharmacy Manager Name Role Phone Francis VASQUEZ [place] Primary Care Provider Brook Chaney Unavailable [phone] Cristofer Cobos Unavailable [phone] Allergies Allergen (clinical drug ingredient) Drug/Non Drug Allergy documented on EMR Reaction Allergy Type Onset Date Status codeine Codeine nausea Drug Allergy Active Penicillin Unknown Drug Allergy Active Substance with sulfonamide structure and antibacterial mechanism of action (substance) Sulfa Antibiotics rash Drug Allergy Active REASON FOR VISIT [facility] 09/20/20, PCP 11/2022 Medications Medication SIG (Take, Route, Frequency, Duration) Notes Start Date End Date Status Calcium Not-Taking Tylenol Not-Taking Custom Orthotics as directed 06/27/2021 Active Custom Orthotics as directed A ctive Ibuprofen PRN Not-Taking Multivitamin Active Metamucil PRN Active Myrbetriq Active Muroptic-5 Active Levothyroxine Sodium Active Custom Orthotics . . . please accomodat e for painful right 5th mt head and base for . 01/01/2015 Not-Taking immodium Not-Taking Custom Orthotics as directed N ot-Taking Custom Orthotics as directed 09/01/2016 Not-Taking Custom Orthotics as directed 05/01/2014 Not-Taking Social History Alcohol Screen Question Answer Notes Did you have a drink containing alcohol in the p ast year? No Points 0 Interpretation Negative Tobacco use other than smoking: Question Answer Notes Are you an other tobacco user? No Vital Signs Height 5 ft 1 in in 05/11/2023 Weight 143 lbs 05/11/2023 BMI 27.02 kg/m2 05/11/2023 Encounters Encounter Location Date Provider Diagnosis [facility] [place] [address] [place] [id number] 05/11/2023 Cristofer Cobos Tinea unguium B35.1 ; Pain in right foot M79.671 ; Pain in right toe(s) M79.674 ; Pain in left toe(s) M79.675 ; Ingrowing nail L60.0 ; Metatarsalgia, right foot M77.41 and Primary osteoarthritis, right ankle and foot M19.071 Assessments Encounter Date Diagnosis (ICD Code) Assessment Notes Treatment Notes Treatment Clinical Notes Section Notes 05/11/2023 Tinea unguium (ICD-10 - B35.1) 05/11/2023 Pain in right foot (ICD-10 - M79.671) 05/11/2023 Pain in right toe(s) (ICD-10 - M79.674) 05/11/2023 Pain in left toe(s) (ICD-10 - M79.675) 05/11/2023 Ingrowing nail (ICD-10 - L60.0) 05/11/2023 Metatarsalgia, right foot (ICD-10 - M77.41) 05/11/2023 Primary osteoarthritis, right ankle and foot (ICD-10 - M19.071) Plan Of Treatment Next Appt Details Follow Up: 6 Months, Reason: Provider Name:Brook Jian brown, 06/20/2024 10:00:00 AM, [address] [place] [address], [place], [address], Progress Notes * Jackie PLUNKETT FDOB: (78 yo F)Acc No.[id number]:05/11/2023 Progress Note Patient:?Jackie Plunkett Provider:?Cristofer Cobos DPM :1945???Age:78 Y???Sex:Female D ate:05/11/2023 Address:[address] [place], [place] [id number] Pcp:Heri Blanco MD Subjective: * Chief Complaints: * ???[facility] 09/20/20PCP 11/2022 * HPI: ???Foot Pain:?Nature:?aching, tenderness.?Location?Bottom, Forefoot, Right .?Duration:?several years.?Onset/Cause:?unknown.?Course:?intermittent.?Aggrevated:?any pressure, standing, walking.?Treatments:?innersoles--pt has new orthoses from 09/05 and need to be modified to better offload right 5th mtpj--she?saw Daniel at [facility] on 07/24/22 and the new inserts are improving her foot pain.?Quality/Severity?moderate.?Ingrown toenail:?Nature:?tenderness.?Location:?Great toe, Both feet.?Skin problems:?Nature:?discolored.?Location:?Right , 1st.?Duration:?several months.? * ROS:?General/Constitutional:?Nausea?denies.?Vomiting?denies.?Hunger Thirst?denies.?Loss appetite?denies.?Chills?denies.?Fatigue?denies.?Fever?denies.?Night Sweats?denies.?Unexplained weight loss?denies.?Unexplained weight gain?denies.?HEENTM:?Dentures?denies.?Dizziness?denies.?Glasses/contacts?admits.?Retinopathy?de nies.?Blurred/double vision?denies.?TMJ?denies.?Discharge/drainage?denies.?Implants?denies.?Sore throat?denies.?Dental implants?denies.?Hard of hearing ?denies.?Difficulty chewing/swallowing/speaking?denies.?Nose bleeds?denies.?Sore mouth?denies.?Respiratory:?On Oxygen?denies.?Pneumonia/pleurisy?denies.?Bronchitis?denies.?Emphysema?denies.?C oughing?denies.?Cough blood?denies.?Shortness of breath?denies.?Wheezing?denies.?Cardiovascular:?Pacemaker?denies.?MVP?denies.?WPW?denies.?CHF?denies.?Heart attack?denies.?Septal defect?denies.?Rapid beat?denies.?Chest pain ?denies.?Atrial Fib.?denies.?Murmur/Palpitations?denies.?Gastrointestinal:?Hemorrhoids?denies.?Stomach/Abdominal pain?denies.?Dark blood stool?denies.?Irritable bowel ?denies.?Constipation?denies.?Diarrhea?denies.?Hematology:?Swelling?denies.?Clots?denies.?Varicose Veins?denies.?Bruising?denies.?Bleeding problem?denies.?Genitourinary:?Blood urine?denies.?Frequent/Painfu/urination/bladder control?denies.?Kidney stones?denies.?Infection (UTI)?denies.?Nephropathy?denies.?sex trans dis (STD)?denies.?Prostate?denies.?Musculoskeletal:?Hammertoes?denies.?Bunions?denies.?Back Pain?denies.?Muscle Cramps/ Resting?denies.?Muscle cramps / walking?denies.?Generalized aches and pains?denies.?Weakness?denies.?Integ.:?Oreilly?denies.?Scars?denies.?Corns/calluses?admits.?Ingrown nails?denies.?Painful nails?denies.?Open Sores?denies.?Rashes?denies.?Neurologic:?Difficulty sleeping?denies.?Brain disorder?denies.?Numbness?denies.?Balance trouble?admits.?Confusion?denies.?Fainting/blackouts?denies.?Tingling?denies.?Tr emors?denies.? * Medical History:? * Surgical History:?cataract s urgery both eyes hysterectomy 01/19/2018colonoscopy polyp, benign * Hospitalization/Major Diagno stic Procedure:?Flu shot 12/31/14[facility] Pelvic cancer 01/19/18Radiation treatment 04/2018[facility] 09/20/2020 * Family History:?Mother: dece ased.?Father: , heart attack, diagnosed with Unspecified heart disease.?Paternal Grand Mother: unknown, diagnosed with Family history of arthritis.?Paternal uncle: unknown, foot problems, gout.? No children. * Social History:?Tobacco Use:?Tobacco Use/Smoking?Are you a:: nonsmoker , Additional Findings: Tobacco Non-User: Current non-smoker.?Tobacco use other than smoking?Are you an other tobacco user??No ???Drugs/Alcohol:?Drugs?Have you used drugs other than those for medical reasons in the past 12 months??No ?Alcohol Screen?Did you have a drink containing alcohol in the past year??No ?Points?0 ?Interpretation?Negative ???Miscellaneous:?Caffeine: yes, frequency:, 1-2 cups per day decaf. ?Children: None. ?Exercise: yes, walking, gardening/yard work. ?Marital status: single. 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 * Medications:?TakingLevothyro xine Sodium Muroptic-5 Myrbetriq Metamucil , Notes: PRNMultivitamin Custom Orthotics as directed Custom Orthotics as directed Taking Levothyroxine Sodium Taking Muroptic-5 Taking Myrbetriq Taking Metamucil , Notes: PRNTaking Multivitamin Taking Custom Orthotics as directed Taking Custom Orthotics as directed Not-Taking/PRNTylenol Calcium Ibuprofen , Notes: PRNCustom Orthotics as directed Custom Orthotics . . . . please accomodate for painful right 5th mt head and baseCustom Orthotics as directed Custom Orthotics as directed immodium Medication List reviewed and reconciled with the patientNot-Taking/PRN Tylenol Not- Taking/PRN Calcium Not-Taking/PRN Ibuprofen , Notes: PRNNot-Taking/PRN Custom Orthotics as directed Not-Taking/PRN Custom Orthotics . . . . please accomodate for painful right 5th mt head and baseNot-Taking/PRN Custom Orthotics as directed Not-Taking/PRN Custom Orthotics as directed Not-Taking/PRN immodium Medication List reviewed and reconciled with the patient * Allergies:?Codeine: nauseaSu lfa Antibiotics: rashPenicillinyes[Allergies Verified] Objective: * Vitals:?Ht: 5 ft 1 in, Wt:14 3, BMI: 27.02, Shoe size:8, Wt-k.86 kg. * Examination: ???General Examination: ?GENERAL APPEARANCE:?pleasant, alert, well nourished, well developed, well hydrated, with good attention to hygene/body habitus, and in no acute distress.?ORIENTED:?person,place, and time.?Nails: ?NAILS are:?Elongated, overgrown, dystrophic, greater than 3mm thick, discolored and friable with crumbly malodorous subungual debris, with pain on palpation , TA , T5.?Neurological: ?SENSORY:?Neurological exam demonstrates pop plantar right 5th mtpj.?TINEL'S COMPRESSION:?Negative tarsal tunnel, ranulfo pedis, and medial calcaneal nerves B/L.?BABINSKI REFLEX:?absent.?Neuroma Pain: ?PALPATION:?No interspace pain noted on palpation.?Vascular: ?DP PULSES:? 02/18, B/L.?PT PULSES:? 02/18, B/L.?CAPILLARY FILL TIME:?3 secs. per digit, B/L.?SKIN TEMPERTURE GRADIENT OF THE LOWER EXTERMITIES:?warm to cool, proximal to distal, B/L.?HAIR GROWTH/TEXTURE/ELASTICITY/TURGOR:?normal, B/L.?PIGMENTATION:?normal, B/L.?EDEMA:? 02/18, B/L, Feet, Ankle(s), Leg(s).?TELANGECTASIA:?absent.?VARICOSITIES:?absent.?Dermatologic: ?SKIN FINDINGS:? Skin exam reveals Keratotic lesion(s) located at, Plantar, SUB MTH (s), 5, Right , SUB 5th MTBase, Right .?Orthopedic: ?MUSCLE STRENGTH:?5/5 all groups in a symmetrical fashion , B/L.?GAIT ABNORMALITY:?pronated, abducted, B/L.?DIGITAL DEFORMITIES:?Digital contracture, PIPJ, 2-5 B/L, incompl-reducable to push-up test, no over, nor underlapping.?Ingrown Nail: ?INSPECTION:? Reveals nail incurvation, pain on palpation, groove hypertrophy, groove ischemia, Bilateral nail borders, TA, T5, T6.? Assessment: * Assessment: 1.?Tinea unguium - B35.1 (Pr imary)?2.?Pain in right foot - M79.671?3.?Pain in right toe(s) - M79.674?4.?Pain in left toe(s) - M79.675?5.?Ingrowing nail - L60.0?6.?Metatarsalgia, right foot - M77.41?7.?Primary osteoarthritis, right ankle and foot - M19.071? Plan: * Treatment: * Procedure Codes:? * Follow Up:?6 Months * Images: * Sign off status: Completed true * Provider:?Cristofer Cobos DPM Date:? 024 Generated for Printi ng/Faaamirg/eTransmitting on:?06/13/2024 10:51 AM EDT History and Physical Notes * HPI (History of Present Illness) Category Sub-Category Detail Notes Category Not es Ingrown toenail Nature: tenderness Location: Great toe, Both feet Skin problems Nature: discolored Location: Right , 1st Duration: several months Foot Pain Aggrevated: any pressure, standing, walk ing Onset/Cause: unknown Course: intermittent Duration: several years Nature: aching, tenderness Treatments: innersoles--pt has n ew orthoses from 09/05 and need to be modified to better offload right 5th mtpj--she saw Daniel at [facility] on 07/24/22 and the new inserts are improving her foot pain Quality/Severity moderate Location Bottom, Forefoot, Ri ght Examination Category Sub-Category Detail Notes Category Not es Ingrown Nail INSPECTION: Reveals nail inc urvation, pain on palpation, groove hypertrophy, groove ischemia, Bilateral nail borders, TA, T5, T6 Neuroma Pain PALPATION: No interspace pain noted on palpation Neurological SENSORY: Neurological exa m demonstrates pop plantar right 5th mtpj BABINSKI REFLEX: absent TINEL'S COMPRESSION: Negative tarsal triny radha, ranulfo pedis, and medial calcaneal nerves B/L Dermatologic SKIN FINDINGS: Skin exam reveal s Keratotic lesion(s) located at, Plantar, SUB MTH (s), 5, Right , SUB 5th MTBase, Right Orthopedic GAIT ABNORMALITY: pronated, abducted, B/L DIGITAL DEFORMITIES: Digital contracture , PIPJ, 2-5 B/L, incompl-reducable to push-up test, no over, nor underlapping MUSCLE STRENGTH: 5/5 all groups in a symmetrical fashion , B/L General Examination GENERAL APPEARANCE: pleasant , alert, well nourished, well developed, well hydrated, with good attention to hygene/body habitus, and in no acute distress ORIENTED: person,place, and ti me Vascular DP PULSES (B): 4, B/L PT PULSES (B): /4, B/L CAPILLARY FILL TIME: 3 secs. per digit, B/L TEMPERTURE GRADIENT (C): warm to cool, p roximal to distal, B/L TROPHIC CONDITION-TEXTURE/ELASTICITY/TURGOR/HAIR GROWTH (B): normal, B/L EDEMA (C): 02/18, B/L, Feet, Ankl e(s), Leg(s) TELANGECTASIA: absent VARICOSITIES: absent PIGMENTATION: normal, B/L Nails NAILS are: Elongated, overg rown, dystrophic, greater than 3mm thick, discolored and friable with crumbly malodorous subungual debris, with pain on palpation , TA , T5
--- OUTSIDE RECORDS SUMMARY | 2024-06-13 10:52 | XMS_ITS ---
Author Organization [facility] Address [address] [place] [address] Care Team Providers Care Aluminum Boat Inspector Name Role Phone Francis VASQUEZ [place] Primary Care Provider Brook Chaney Unavailable [phone] Cristofer Cobos Unavailable [phone] Allergies Allergen (clinical drug ingredient) Drug/Non Drug Allergy documented on EMR Reaction Allergy Type Onset Date Status codeine Codeine nausea Drug Allergy Active Penicillin Unknown Drug Allergy Active Substance with sulfonamide structure and antibacterial mechanism of action (substance) Sulfa Antibiotics rash Drug Allergy Active Medications Medication SIG (Take, Route, Frequency, Duration) Notes Start Date End Date Status Multivitamin Active Custom Orthotics as directed A ctive Custom Orthotics as directed 06/27/2021 Active Tylenol Not-Taking Metamucil PRN Active Levothyroxine Sodium 50 MCG 1 tablet in the morning on an empty stomach Orally Once a day Active Muroptic-5 Active Myrbetriq 25 MG 1 tablet Orally Once a day Active Custom Orthotics as directed N ot-Taking immodium Not-Taking Calcium Not-Taking Ibuprofen PRN Not-Taking Custom Orthotics as directed 05/01/2014 Not-Taking Custom Orthotics . . . please accomodat e for painful right 5th mt head and base for . 01/01/2015 Not-Takin g Custom Orthotics as directed 09/01/2016 Not-Taking Social History Alcohol Screen Question Answer Notes Did you have a drink containing alcohol in the p ast year? No Points 0 Interpretation Negative Tobacco use other than smoking: Question Answer Notes Are you an other tobacco user? No Vital Signs Height 5 ft 1 in in 10/26/2023 Weight 138 lbs 10/26/2023 BMI 26.07 kg/m2 10/26/2023 Encounters Encounter Location Date Provider Diagnosis [facility] [address] [place] [phone] 10/26/2023 Cristofer Cobos Tinea unguium B35.1 ; [...] Follow Up: 6 Months, Reason: Provider Name:Brook brown, 06/20/2024 10:00:00 AM, [address] [place] [address], [place], [address], Progress Notes * Jackie PLUNKETT FDOB: (78 yo F)Acc No.[id number]:10/26/2023 Progress Note Patient:?Jackie Plunkett Provider:Martin Cobos DPM :1945???Age:78 Y???Sex:Female D ate:10/26/2023 Address:[address] [place], [place] [phone] Pcp:Heri Blanco MD Subjective: * Chief Complaints: * ??? 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 * Medications:?TakingLevothyro xine Sodium 50 MCG Tablet 1 tablet in the morning on an empty stomach Orally Once a dayMuroptic-5 Myrbetriq 25 MG Tablet Extended Release 24 Hour 1 tablet Orally Once a dayMetamucil , Notes: PRNMultivitamin Custom Orthotics as directed Custom Orthotics as directed Taking Levothyroxine Sodium 50 MCG Tablet 1 tablet in the morning on an empty stomach Orally Once a dayTaking Muroptic-5 Taking Myrbetriq 25 MG Tablet Extended Release 24 Hour 1 tablet Orally Once a dayTaking Metamucil , Notes: PRNTaking Multivitamin Taking Custom Orthotics as directed Taking Custom Orthotics as directed Not-Taking/PRNTylenol Calcium Ibuprofen , Notes: PRNCustom Orthotics as directed Custom Orthotics . . . . please accomodate for painful right 5th mt head and baseCustom Orthotics as directed Custom Orthotics as directed immodium Medication List reviewed and reconciled with the patientNot-Taking/PRN Tylenol Not-Taking/PRN Calcium Not-Taking/PRN Ibuprofen , Notes: PRNNot-Taking/PRN Custom Orthotics as directed Not-Taking/PRN Custom Orthotics . . . . please accomodate for painful right 5th mt head and baseNot-Taking/PRN Custom Orthotics as directed Not-Taking/PRN Custom Orthotics as directed Not-Taking/PRN immodium Medication List reviewed and reconciled with the patient * Allergies:?Codeine: nauseaSu lfa Antibiotics: rashPenicillinyes[Allergies Verified] Objective: * Vitals:?Ht: 5 ft 1 in, Wt:13 8, BMI: 26.07, Shoe size:8, Wt-k.6 kg. * Examination: ???General Examination: ?GENERAL APPEARANCE:?pleasant, [...] Plan: * Treatment: * Procedure Codes:? * Preventive Medicine:? ??Counseling:?Discussion:?-13: Office or other outpatient visit for the evaluation and management of an established patient, which required a medically appropriate history and/or examination and LOW level of DECISION MAKING for: 1 STABLE ACUTE UNCOMPLICATED PROBLEM, 2 OR MORE MINOR PROBLEMS, OR 1 STABLE CHRONIC PROBLEM, THAT POSE(S) A LOW RISK FOR MORBIDITY/MORTALITY. The visit on the day of the encounter encompassed interpreting the data and educating the patient as to the nature of their condition, treatment options available according to their individual PMH, meds, allergies, and overall health/living conditions, as well as any potential risks or complications that may occur from a failure to adhere to, and participate in, the recommended course of therapy. The discussion included a complete verbal, and/or written explanation of the examination results, any x-rays taken, the proposed diagnosis, and outline of the treatment plan. A schedule for future care needs was also explained. The patient verbalized an understanding of the instructions at this time and agreed to be an active participant in their treatment. If the patient should think of any questions or concerns after the visit, I have encouraged the patient to call the office--pt to continue with ed shoes and inserts; rx abx ointment qd for ing nails.? * Follow Up:?6 Months * Images: * Sign off status: Completed true * Provider:?Cristofer Cobos DPM Date:? 024 Generated for Joselo adame/Herve/Farnaz on:?06/13/2024 10:52 AM EDT History and Physical Notes * [...] offload right 5th mtpj--she saw Daniel at [facility] on 07/24/22 and the new inserts are [...] and ti me Vascular DP PULSES (B): 1/4, B/L PT PULSES (B): 1/4, B/L CAPILLARY FILL TIME: 3 secs. per digit, B/L TEMPERTURE GRADIENT (C): warm to cool, p roximal to distal, B/L TROPHIC CONDITION-TEXTURE/ELASTICITY/TURGOR/HAIR GROWTH (B): normal, B/L EDEMA (C): 1/4, B/L, Feet, Ankl e(s), Leg(s) TELANGECTASIA: absent VARICOSITIES: absent PIGMENTATION: normal, B/L Nails NAILS are: Elongated, overg rown, dystrophic, greater than 3mm thick, discolored and friable with crumbly malodorous subungual debris, with pain on palpation , TA , T5
== END 2024-06-13 10:28 | disposition home or self-care (01) ==
LOC: HO.HMCH 09:44
PROVIDERS: PCP Internal Medicine; Visit Provider Internal Medicine
DX: E78.00 Pure hypercholesterolemia, unspecified (principal); E03.9 Hypothyroidism, unspecified; Z85.42 Personal history of malignant neoplasm of other parts of uterus; M85.80 Other specified disorders of bone density and structure, unspecified site; K21.9 Gastro-esophageal reflux disease without esophagitis; M23.51 Chronic instability of knee, right knee; M19.041 Primary osteoarthritis, right hand; M19.042 Primary osteoarthritis, left hand; Z87.81 Personal history of (healed) traumatic fracture; N32.81 Overactive bladder; E66.3 Overweight

== ENCOUNTER → 2024-06-13 09:43 | Outpatient (BNVA) | payer MEDICARE, MEDICAID, SELFPAY | PROVIDERS: PCP Internal Medicine; Visit Provider Internal Medicine | DX: E78.00 Pure hypercholesterolemia, unspecified (principal); E03.9 Hypothyroidism, unspecified; M85.80 Other specified disorders of bone density and structure, unspecified site; K21.9 Gastro-esophageal reflux disease without esophagitis; M23.51 Chronic instability of knee, right knee; M19.041 Primary osteoarthritis, right hand; M19.042 Primary osteoarthritis, left hand; N32.81 Overactive bladder; E66.3 Overweight; Z87.81 Personal history of (healed) traumatic fracture; Z85.42 Personal history of malignant neoplasm of other parts of uterus | CPT/HCPCS: 96127; 99212 ==

== ENCOUNTER 2024-08-15 08:50 | Outpatient (REF) | payer MEDICARE, MEDICAID, SELFPAY ==
--- NOTE | ~2024-08-15 | MM_ITS ---
EXAMINATION: DXA BONE DENSITY AXIAL HISTORY: Z78.0 - Asymptomatic menopausal state TECHNIQUE: [employer] Dual energy absorptiometry (DEXA) of the lumbar spine, total left hip, and femoral neck was performed. COMPARISON: Comparison is made with the prior examination dated 08/21/2020. FINDINGS: The bone mineral density of the lumbar spine is 1.383 g/cm2, corresponding to a T-score of 1.7, and a Z-score of 3.6. This is indicative of normal bone mineral density. This represents a BMD change of 0.8% compared to the prior exam. This is not statistically significant. The bone mineral density of the left total hip is 0.876 g/cm2, corresponding to a T-score of -1.0, and a Z-score of 1.0. This is indicative of normal bone mineral density. This represents a BMD change of -6.7% compared to the prior exam. This is statistically significant. The bone mineral density of the left femoral neck is 0.767 g/cm2, corresponding to a T-score of -2.0, and a Z-score of 0.2. This is indicative of osteopenia. This represents a BMD change of -3.5% compared to the prior exam. FRACTURE RISK: The FRAX index suggests a ten year probability of major osteoporotic fracture of 21.9%, and of hip fracture 5.7%. MM/XR DEXA axial skeleton IMPRESSION: Based on bone mineral density, and according to World Health Organization (WHO) criteria, the diagnosis is consistent with osteopenia. Statistically, 68% of repeat scans fall within 1 SD (+/- 0.010 g/cm2 for AP spine L1-L4) and 1 SD (+/- 0.012 g/cm2 for femur total) FRAX is a trademark of the [employer]'s [place] for Metabolic Bone Disease, a World Health Organization (WHO) Collaborating Center. Electronically signed by: William Davis MD 08/15/2024 10:13 AM EDT
--- NOTE | ~2024-08-15 | MM_ITS ---
EXAMINATION: MM SCREENING DIGITAL BREAST TOMOSYNTHESIS, BILATERAL CLINICAL INFORMATION: Screening. Asymptomatic. COMPARISON: Mammography: Comparison is made with available priors TECHNIQUE: Digital breast mammography with tomosynthesis is performed in both the craniocaudal and mediolateral oblique views along with computer-aided detection (CAD). FINDINGS: The breasts are heterogeneously dense, which may obscure small masses (ACR BI-RADS breast composition Category c). There are no significant masses, abnormal calcifications, or other abnormalities. MM/MM tomosynthesis screening BI IMPRESSION: No mammographic evidence of malignancy. ASSESSMENT: BI-RADS BI-RADS 1 - Negative RECOMMENDATION: Routine annual mammography screening. 1 year F/U This examination should not preclude the clinical evaluation of a suspicious palpable abnormality. This patient's information was entered into a reminder system with a target due date for their next mammogram. Electronically signed by: Pia Bowden DO 08/27/2024 02:38 PM EDT
--- OUTSIDE RECORDS SUMMARY | 2024-08-15 09:08 | XMS_ITS | Data Portability ---
Author Organization [place] [facility] Address [address] [place] [id number] Care Team Providers Care Exhibition Organiser Name Role Phone KORY BARTLETT Primary Care Provider DOREEN HERNANDEZ OTHER Assessment Encounter Date Assessment Date Assessment LastModified by Organization Details LastModified Time 10/10/2019 10/10/2019 Overview/History : 74-year-old female with past medical history significant for endometrial adenocarcinoma with hysterectomy and radiation treatments, pelvic fractures with fixation of the presenting with left lower quadrant abdominal pain worsened over the last 2 days. Reports pain to be sharp and stabbing in nature sometimes burning. Reports bowel movements and states at times feels like she has to have a bowel movement but is unable to at other times has somewhat softer swishy. Denies passing flatus the vomiting hematochezia the. Denies fever but is also on scheduled Tylenol. Reports mild nausea. Exam: Comfortable appearing elderly female lying in bed, afebrile. The heart sounds regular, lungs clear, abdomen soft with pain to palpation of the left lower quadrant, normoactive bowel sounds. DDx considered, but not limited to: Consider diverticulitis given left lower quadrant pain. Consider mass causing possible obstruction. Consider partial bowel obstruction. Consider change in bowels possibly secondary to recent radiation treatments. Work up/Results: Plan/Discussion: Patient needs abdominal imaging and is transferred via EMS to be steady for evaluation and management. Patient instructed to call if symptoms worsen or do not improve; patient acknowledges understands and agrees with plan. Note created with voice recognition software and may contain grammatical errors due to this. Patients PCP contacted and updated on patient status. Patient verbalized understanding of discharge instructions and when to follow up with PCP/911/ED as needed. Patient in agreement with current plan and treatment. Proper Personal Protective Equipment (PPE), including gloves, eye protection and masks were donned and doffed appropriately and all equipment cleaned using approved technique with germicidal disposable wipes prior to and after care of this patient according to [facility]'s infection prevention protocols. [email or web address] Not available 10/10/2019 10:15:37 12/13/2019 12/13/2019 Overview/History : Pt is a 74yo F with PMH sig for HLD, hypothyroidism and endometrial ca. Pt was noted to have fever of 103.5 last night around 1830 that came down with 1 dose of APAP. Pt has had a new dry cough and reported fatigue yesterday and today. Reports that she was having a mild stuffy nose but that this has resolved. She denies any SOB, lightheadedness, dizziness, CP, n/v/d. Exam: Pt is A/Ox3, non-toxic appearing, VSS, HRR, resp reg and unlabored on RA, lungs pos for faint crackles in bilat bases, HEENT exam pos for mod effusions to bilat TMs, abd is soft, non-tender, non-distended. Skin c/d/i without s/s of infection. DDx considered, but not limited to: PNA: likely given fever, cough and fine crackles in bases URI: possible given report of stuffy nose earlier this week, dry cough, effusions to TMs and fever COVID: possible given URI sx and fever with living in a communal setting Sepsis: unlikely given VSS and pt is non-toxic appearing UTI: unlikely, urine dip by RN at facility was WNL, urine is clear, pt denies urinary type sx. Septic Joint: unlikely, surgical incision without s/s of infection, pt able to weight bare, no tenderness with palpation to the joint, no erythema or warmth noted to the joint. Work up/Results: CXR: pending COVID: pending Plan/Discussion: Pt started on Doxy for concern of pna. CXR pending for further eval. COVID test pending to r/o given high fevers and pt lives in a communal setting. Advised on s/s to report to the ER. Pt resides in a facility with RN care who will be monitoring pt closely. Patients PCP contacted and updated on patient status. Patient verbalized understanding of discharge instructions and when to follow up with PCP/911/ED as needed. Patient in agreement with current plan and treatment. In order to obtain further information and compare any laboratory results/values, I have accessed old patient records. This information was pertinent in my medical decision making today. Time On Scene with Patient: 00:44:58 [email or web address] Not available 12/13/2019 18:53:59 Plan of Treatment Reminders Order Date Submit Date Provider Last Modified By Organization Details Last Modified Time Details Appointments None recorded. 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 Procedures None recorded. Surgeries None recorded. Imaging XR, chest, 2 view 2019 [facility] ([facility] [address] [place] [address], [place], [address], 0 10:17:45 Medication Orders doxycycli ne hyclate 100 mg capsule 2019 rj [id number], [address], [place], [id number], 0 18:48:16 Patient TargetsNo targets recorded. Patient Instructions Encounter Date Encounter Id Patient Instructions Last Modified By Organization Details Last Modified Time 10/14/2019 [id number] Care coordinatio n call. Pt is currently in rehab. She was very thankful for the call. Pt has two follow up appointments, one of them being in the next ten days. Pt says she doesn't need any resources or futher follow up care at this time. [email or web address] Not available 10/14/2019 15:44:06 12/13/2019 [id number] Thank you [facility] yo ur [facility]. We cannot always find the exact cause of your symptoms during your initial visit. Based on exam your symptoms seem consistent with pneumonia. We have started you on antibiotics and have ordered a chest xray for further evaluation. We also tested you for COVID to make sure that isn't the cause of your symptoms either. If you start to have a fever over 102 that does not respond to tylenol, have shortness of breath, or chest pain please report to the ER. Please follow up with your primary care provider or specialist within 24-48 hours to be rechecked or seek medical attention if your symptoms do not go away or get worse. If you develop any new or worsening symptoms and need after hours care, please go to nearest ER and/or call 911. If you have additional concerns or develop a change in your condition between 8am-10pm, please [facility] at [phone] to help navigate your care. What is coronavirus disease 2019? Coronavirus disease 2019 (COVID-19) is a respiratory illness that can spread from person to person. The virus that causes COVID-19 is a novel coronavirus that was first identified during an investigation into an outbreak in [facility]. Can I get COVID-19? Yes. COVID-19 is spreading from person to person in parts of the world. Risk of infection from the virus that causes COVID-19 is higher for people who are close contacts of someone known to have COVID-19, for example household members. Other people at higher risk for infection are those who live in or have recently been in an area with ongoing spread of COVID-19. How does COVID-19 spread? The virus that causes COVID-19 probably emerged from an animal source, but is now spreading from person to person. The virus is thought to spread mainly between people who are in close contact with one another (within about 6 feet) through respiratory droplets produced when an infected person coughs or sneezes. It also may be possible that a person can get COVID-19 by touching a surface or object that has the virus on it and then touching their own mouth, nose or possibly their eyes, but this is not thought to be the main way the virus spreads. What are the symptoms of COVID-19? Patients with COVID-19 have mild to severe respiratory illness with symptoms of: fever cough shortness of breath What are severe complications from this virus? Some patients have pneumonia in both lungs, multi-organ failure and in some cases . People can help protect themselves from respiratory illness with everyday preventative actions. Avoid close contact with people who are sick. Avoid touching your eyes, nose, and mouth with unwashed hands. Wash your hands often with soap and water for at least 20 seconds. Use an alcohol-based hand business development associate that contains at least 60% alcohol if soap and water are not available If you are sick, to keep from spreading respiratory illness to others, you should Stay home when you are sick. Cover your cough or sneeze with a tissue, then throw the tissue in the trash. Clean and disinfect frequently touched objects and surfaces. Is there a vaccine? There is currently no vaccine to protect against COVID-19. The best way to prevent infection is to take everyday preventive actions, like avoiding close contact with people who are sick and washing your hands often. Is there a treatment? There is no specific antiviral treatment for COVID-19. People with COVID-19 can seek medical care to help relieve symptoms. FOR MORE INFORMATION: [email or web address].[email or web address] Not available 12/13/2019 18:20:57 Reason for Referral None Reported. Results Created Date Observation Date Name Description Value Unit Range Abnormal Flag Note LastModifiedBy Organization Detail LastModifiedTime 12/13/19 20 12/15/2019 SARS CoV 2 RNA (COVI D-19) , QL, sculpture conservator-P CR, respi rator y speci men covid-19, SAVANNA Not Detec juanita Refer ence range : Not Detec juanita (NOTE ) Testi ng was perfo rmed using the arik (R) SARS- CoV-2 test. This nucle ic acid ampli ficat ion test was devel oped and its perfo rmanc e zurdo cteri stics deter mined by [employer] to [employer] atori es. Nucle ic acid ampli ficat ion tests inclu de PCR and TMA. This test has not been FDA clear ed or appro angelita. This test has been autho rized by FDA under an Emerg ency Use Autho rizat ion (EUA) . This test is only autho rized for the durat ion of time the decla ratio n that circu mstan maggie exist justi fying the autho rizat ion of the emerg ency use of in vitro diagn ostic tests for detec tion of SARS- CoV-2 virus and/o r diagn osis of COVID -19 infec tion under secti on 564(b )(1) of the Act, 21 U.S.C . 360bb b-3(b ) (1), unles s the autho [place] brito is termi nated or revok ed soone r. When diagn ostic testi ng is negat leodan, the possi bilit y of a false negat leodan resul t shoul d be consi dered in the bozena xt of a patie nt's recen t expos ures and the prese nce of clini patricia signs and sympt oms consi stent with COVID -19. An indiv idual witho ut sympt oms of COVID - 19 and who is not hunter ing SARS- CoV-2 virus would expec t to have a negat leodan (not detec juanita) resul t in this assay . TEST PERFO RMED BY [facility], JUNIOR AN, CR SHANKS Y Not Available [facility] (Centralized Electronic Ordering - All Locations) Patient Can Go To The Location Of Their Choice, [id number] 12/15/2019 11:47:06 12/14/19 20 12/14/2019 XR, chest , 2 view XRAY CHEST 2 VIEW FINDIN GS: Lungs: No focal consol idatio n. Pulmon evelia vascul ature is within normal limits . Pleura : No pneumo thorax . No pleura l effusi on. Heart and Medias tinum: The cardio medias tinal silhou ette is normal in size and contou r. Osseou s struct ures: Visual ized osseou s struct ures are stable . No radiop aque foreig n body. CONCLU ONIEL: No acute cardio pulmon evelia proces s. ELECTR ONICAL LY SIGNED BY JONAS ZARCO M.D. 2019 9:58:1 7 AM EDT. XRAY CHEST 2 VIEW Result s: Lungs: No focal consol idatio n. Pulmon evelia vascul ature is within normal limits . Pleura : No pneumo thorax . No pleura l effusi on. Heart and Medias tinum: The cardio medias tinal silhou ette is normal in size and contou r. Osseou s struct ures: Visual ized osseou s struct ures are stable . No radiop aque foreig n body. Conclu oniel: No acute cardio pulmon evelia proces s. Electr onical ly signed by JONAS ZARCO M.D. 2019 9:58:1 7 AM EDT. [email or web address] [facility] [address], [place], [address], 12/15/2019 11:45:20 Result Notes Documentation Provider Name and Address Organization Details Recorded Time Xr, Chest, 2 View : XRAY CHEST 2 VIEW FINDINGS: Lungs: No focal consolidation. Pulmonary vasculature is within normal limits. Pleura: No pneumothorax. No pleural effusion. Heart and Mediastinum: The cardiomediastinal silhouette is normal in size and contour. Osseous structures: Visualized osseous structures are stable. No radiopaque foreign body. CONCLUSION: No acute cardiopulmonary process. ELECTRONICALLY SIGNED BY SAM ZARCO M.D. 12/14/2019 9:58:17 AM EDT. XRAY CHEST 2 VIEW Results: Lungs: No focal consolidation. Pulmonary vasculature is within normal limits. Pleura: No pneumothorax. No pleural effusion. Heart and Mediastinum: The cardiomediastinal silhouette is normal in size and contour. Osseous structures: Visualized osseous structures are stable. No radiopaque foreign body. Conclusion: No acute cardiopulmonary process. Electronically signed by SAM ZARCO M.D. 12/14/2019 9:58:17 AM EDT. [facility], [place] [facility] 12/15/2019 11:45:20 Medical Equipment None Reported. Allergies Allergen ID Allergen Name Allergen Category Reaction Reaction Severity Criticality Documentation Date Start Date Code Code System Note Provider Name and Address Organization Details Recorded Time [id number] codeine medicatio n Not available Not available Not available 10/10/2019 1040 RxNorm [facility] [address] [facility] [place], [address], [place] [facility] 0 09:03:46 [id number] Substance with sulfonami de structure and antibacte rial mechanism of action (substanc e) medicatio n Not available Not available Not available 10/10/2019 00531 8003 SNOMED [facility] [address] Nataliyavandana [place], [place], [address], [place] [facility] 0 09:03:53 [id number] lactose food,medi cation Not available Not available Not available 10/10/2019 6211 RxNorm [facility] [address] ArthurIgor rossvandana [place], [address], [place] [facility] 0 09:04:01 Medications Name Sig Start Date Stop Date Status Note LastModified by Organization Details LastModified Time cyclobenzapr ine 10 mg tablet TK 1 T PO BID FOR 7 DAYS 10/09 completed Not Available Not Available Not Available doxycycline hyclate 100 mg capsule Take 1 capsule twice a day by oral route for 10 days. active Not Available Not Available No t Available hydromorphon e 2 mg tablet active Not Available Not Available Not Available diazepam 2 mg tablet TK 1 T PO Q 8 H PRF SPASM active Not Available Not Available No t Available levothyroxin e 50 mcg tablet active Not Available Not Available Not Available ibuprofen 600 mg tablet 10/09 completed Not Available Not Available Not Available enoxaparin 40 mg/0.4 mL subcutaneous syringe 10/09 completed Not Available Not Available Not Available docusate sodium active Not Available Not Available Not Available senna active Not Available Not Availa ble Not Available Tylenol active Not Available Not Avail able Not Available Myrbetriq 25 mg tablet,exten ded release active Not Available Not Available Not Available Readi-Cat 2 2 % (w/v) oral suspension UTD 12/12 completed Not Available Not Available Not Available Vitals Date Recorded Oxygen saturation Oxygen saturation in Arterial blood by Pulse oximetry Respiratory rate Heart rate Body temperature Systolic blood pressure Diastolic blood pressure Provider Name and Address Organization Details Last Updated DateTime 0 97 % 97 % 14 /min 60 /min 97 [degF] 118 mm[Hg] 60 mm[Hg] Not Available [facility] 0 09:05:34 Date Recorded Oxygen saturation Oxygen saturation in Arterial blood by Pulse oximetry Respiratory rate Body temperature Heart rate Oxygen saturation Oxygen saturation in Arterial blood by Pulse oximetry Systolic blood pressure Diastolic blood pressure Provider Name and Address Organization Details Last Updated DateTime 0 9 % 9 % 20 /min 100.4 [degF] 88 /min 96 % 96 % 112 mm[Hg] 60 mm[Hg] Not Available [facility] 0 18:07:36 Social History None recorded. Functional Status None recorded. Mental Status None recorded. Family History Nothing Reported. Medical History Condition Response Diabetes N Coronary Artery Disease N Cancer N Stroke N Asthma N COPD N Depression N High Cholesterol Y Pulmonary Embolism N Hypertension N Kidney Disease N Gynecological HistoryNo gynecological history recorded. Obstetrics History GPAL:G 0 P 0 0 0 0 Past Encounters Encounter ID Performer Location Encounter Start Date Encounter Closed Date Diagnosis/Indication Diagnosis SNOMED-CT Code Diagnosis ICD10 Code Diagnosis Note [id number] [facility] [address] [place] [address] 10/10/2019 08:58:59 10/10/2019 19:31:40 Left lower quadrant pain 741777306 R10.32 [id number] Shana Ellis RN [facility] [address] [place] [address] 10/14/2019 15:42:52 10/14/2019 16:02:07 [id number] FELIX MTZ NP [facility]AC[facility] [address] [place] [address] 12/13/2019 17:54:29 12/14/2019 17:27:35 Fever 548829794 R50.9 Exposure t o communicable disease 035905115 Z20.828 Community acquired pneumonia 125439984 J18.9 Health Concerns Section Related Observation LastModified by Organization Detai ls LastModified Time None Recorded Concern Status LastModified by Organization Details LastModified Time None Recorded Advance Directives Directive None Recorded Payers Insurance Date Sequence Insurance Name Policy Number Policy Polanco Covered Member ID Polanco Member ID Guarantor Name 12/13/2019 2 [place] [facility] Jackie Golden Meadow [id number] Jackie Golden [place]ow 11/14/2019 2 [place] [facility] Jackie Golden [place]ow [id number] Jackie Golden [place]ow 10/09/2019 1 *SELF PAY* Jackie Hoover [id number] Jackie Golden [place]ow 10/09/2019 1 [place] [employer] Jackie Hoover [id number] Jackie Hoover 12/13/2019 1 [place] [employer] Jacike Hoover [id number] Jackie Hoover Notes Date Note Type Note Provider Name and Address Organization Details Recorded Time 10/10/2019 text/html 74-year-old azael welch presents with nursing staff for evaluation.Patient has a history of endometrial adenocarcinoma, has had hysterectomy and radiation treatment. In July, was noted to have multiple fractures of her pelvis and had fixation surgery for this. Patient is nonweightbearing to her right leg. Reports has had abdominal pain Notes left lower quadrant abdominal pain significant over the past couple of days. States at times she cries out from the pain. Reports also feeling stabbing and burning nature. Reports abnormal bowel movements. Since that time she is able to have somewhat of a bowel movement at times, feels like she needs to have a bowel movement but is unable to. Reports frequent urination but states this is not new and she follows with urology for this. Denies fever but is taking Tylenol scheduled throughout the day, also taking Dilaudid. Does report some mild nausea but states it does not occur with Dilaudid usage. Denies vomiting, hematochezia, flatus. [facility] [address] [place], [address], [place] [facility] 10/10/2019 10:16:04 12/13/2019 text/html Pt spiked a feve r at 1830 of 103.5. At 1530 she had reported chills but was afebrile at that time. Pt was given APAP at 1830 and temp slowly came down and has been afebrile today. Urine has been clear, nurses dipped the urine and it was normal. Pt has a dry cough that is new for her, pt has been in bed today more than usual. No current positive cases of COVID in the building, no recent exposures that the staff is aware of. Pt is being followed by her oncologist and pt is doing well on that side. Pt had hip surgery 3 months ago. surgical incision has no s/s of infection per the nurse. Pt states that she has coughed up a little bit of phlegm. Pt states that she was tired during the day today and states she is starting to feel better now. Pt has been getting PT and is unsure if she could have gotten anything from PT. Pt denies BLACKMAN, lightheadedness, dizziness, SOB, n/v/d. FELIX TMZ, CHARLES [address] [place], [address], [place] [facility] 12/13/2019 18:54:07 OBGyn Episode No OBEpisode recorded.
--- OUTSIDE RECORDS SUMMARY | 2024-08-15 09:08 | XMS_ITS | Patient Health Record ---
Author Organization [facility] Address [address] [place] [id number] Care Team Providers Care [employer] Name Role Phone Francis VASQUEZ, [place] Primary Care Provider Brook Chaney Unavailable [phone] Cristofer Cobos Unavailable [phone] Allergies Allergen (clinical drug ingredient) Drug/Non Drug Allergy documented on EMR Reaction Allergy Type Onset Date Status codeine Codeine nausea Drug Allergy Active Penicillin Unknown Drug Allergy Active Substance with sulfonamide structure and antibacterial mechanism of action (substance) Sulfa Antibiotics rash Drug Allergy Active Reason For Referral No Information Medications Medication SIG (Take, Route, Frequency, Duration) Notes Start Date End Date Status Ibuprofen PRN Not-Taking Calcium Not-Taking Tylenol Not-Taking [employer] Orthotics as directed 06/27/2021 Not-Taking Custom Orthotics as directed Metatarsalgia 06/20/2024 Active Myrbetriq 25 MG 1 tablet Orally Once a day Active [employer] as directed N ot-Taking Muroptic-5 Active [employer]otics as directed 09/01/2016 Not-Taking Levothyroxine Sodium 50 MCG 1 tablet in the morning on an empty stomach Orally Once a day Active [employer]otics . . . please accomodat e for painful right 5th mt head and base; Duration: . 01/01/2015 Not-Taking Custom Orthotics as directed 05/01/2014 Not-Taking Multivitamin Active Metamucil PRN Active immodium Not-Taking Custom Orthotics as directed N ot-Taking Immunizations Vaccine Route Administration Date Status Comme nts Influenza Unknown 12/08/2018 Administered Social History Tobacco Use: Social History Observation Description Date Details (start date - stop date) Never Smoker NA - NA Alcohol Screen Question Answer Notes Did you have a drink containing alcohol in the p ast year? No Points 0 Interpretation Negative Tobacco use other than smoking: Question Answer Notes Are you an other tobacco user? No Tobacco Control (Standard) Question Answer Notes Tobacco use: Nonsmoker Additional Findings: Tobacco non-user Current no nsmoker Problems Problem Type SNOMED Code ICD Code Onset Dates Problem Status W/U Status Risk Notes Problem Pain in right foot (520301048740 107) Pain in right foot (M79.671) Active confirmed Problem Primary osteoarthriti s, right ankle and foot (M19.071) Active confirmed Vital Signs Height 5 ft 1 in in 06/20/2024 Weight 138 lbs 06/20/2024 BMI 26.07 kg/m2 06/20/2024 Procedures Procedure Date Ordered Date Performed Result Body Sit e 97974-EJUOLJG NAIL, 6 OR MORE 06/20/2024 N/A Encounters Encounter Location Date Provider Diagnosis [facility] [address] 10/26/2023 Cristofer Cobos Tinea unguium B35.1 ; Pain in right foot M79.671 ; Pain in right toe(s) M79.674 ; Pain in left toe(s) M79.675 ; Ingrowing nail L60.0 ; Metatarsalgia, right foot M77.41 and Primary osteoarthritis, right ankle and foot M19.[address] [facility] [address] 06/20/2024 Brook Milton Pain in right foot M79.671 ; Metatarsalgia, right foot M77.41 ; Pain in right ankle and joints of right foot M25.571 ; Bursitis of intermetatarsal bursa of right foot M77.51 ; Pain in right toe(s) M79.674 ; Onychomycosis B35.1 and Pain in left toe(s) M79.675 Assessments Encounter Date Diagnosis (ICD Code) Assessment Notes Treatment Notes Treatment Clinical Notes Section Notes 10/26/2023 Tinea unguium (ICD-10 - B35.1) 06/20/2024 Metatarsalgia, right foot (ICD-10 - M77.41) 06/20/2024 Pain in right foot (ICD-10 - M79.671) 06/20/2024 Pain in right ankle and joints of right foot (ICD-10 - M25.571) 10/26/2023 Pain in right foot (ICD-10 - M79.671) 10/26/2023 Pain in right toe(s) (ICD-10 - M79.674) 06/20/2024 Bursitis of intermetatarsal bursa of right foot (ICD-10 - M77.51) 06/20/2024 Pain in right toe(s) (ICD-10 - M79.674) 10/26/2023 Pain in left toe(s) (ICD-10 - M79.675) 10/26/2023 Ingrowing nail (ICD-10 - L60.0) 06/20/2024 Onychomycosis (ICD-10 - B35.1) 10/26/2023 Metatarsalgia, right foot (ICD-10 - M77.41) 06/20/2024 Pain in left toe(s) (ICD-10 - M79.675) 10/26/2023 Primary osteoarthritis, right ankle and foot (ICD-10 - M19.071) Plan Of Treatment Pending Test Test Name Order Date X ray : Foot, right 2V 10/10/2013 [id number] NAIL, 6 OR MORE 06/20/2024 [id number] NAIL, 1-08/24/2017 73171-KWEMCFC NAIL, -12/21/2017 03575-TTGJAEL NAIL, -09/01/2016 73690-XYNSYJR NAIL, -12/11/2016 84126-YFXVHKV NAIL, -04/13/2017 46186-Olxr Destruction, -04/13/2017 75631-Ajvl Destruction, -12/11/2016 69105-Jwzs Destruction, -12/21/2017 54501-Thjw Destruction, -08/24/2017 64804-Pyddbykn Plate 10/10/2013 44086-Nohrsqfk Plate 12/19/2013 71057-Tgsqrgdf Plate 04/20/2014 00655-Mwddwvqo Plate 08/28/2014 98884- Debride <25 sq cm 08/28/2014 Next Appt Details Provider Name:Brook brown, 11/21/2024 10:00:00 AM, [address] [facility], [address], [place], [address], Insurance Providers Payer Name Payer Address Payer Phone Subscriber Number Group Number Insured Name Patient Relationship to Insured Coverage Start Date Coverage End Date Medicare National [employer] [address] [facility] [place] [address] [id number] Jackie Hoover Self - patient is the insured Medical (General) History Medical History History ICD Code Arthritis Back,Hip,and Knee pain Cataracts Chicken pox Measles Thyroid disorder Surgical History Surgery Date(Month/Year) cataract surgery both eyes hysterectomy 01/19/2018 colonoscopy polyp, benign Hospitalization History Reason Date(Month/Year) [facility] 09/20/2020 Radiation treatment 04/2018 [facility] Pelvic cancer 01/19/18 Flu shot 12/31/14
--- OUTSIDE RECORDS SUMMARY | 2024-08-15 09:08 | XMS_ITS | Patient Health Record ---
Author Organization [facility] Address [address] [place] [phone] Care Team Providers Care [employer] Name Role Phone Francis VASQUEZ, [place] Primary Care Provider Vignesh Herndon Jr Unavailable Allergies Allergen (clinical drug ingredient) Drug/Non Drug Allergy documented on EMR Reaction Allergy Type Onset Date Status Substance with sulfonamide structure and antibacterial mechanism of action (substance) Sulfa Antibiotics Unknown Drug Allergy Active codeine Codeine Unknown Drug Allergy Active Reason For Referral No Information Medications Medication SIG (Take, Route, Frequency, Duration) Notes Start Date End Date Status Levothyroxine Sodium 50 MCG 1 tablet in the morning on an empty stomach Orally Once a day for 30 day(s) Active Metamucil - 1 packet with 8 ounc es of liquid as needed Orally Three times a day Active Myrbetriq 25 MG 1 tablet Orally Once a day for 30 day(s) Active Calcium 1 tab Oral for 14 days Active Immunizations Vaccine Route Administration Date Status Comme nts Influenza Unknown 10/17/2019 Administered Social History Tobacco Use: Social History Observation Description Date Details (start date - stop date) Never Smoker NA - NA Tobacco Use/Smoking Question Answer Notes Patient is a nonsmoker Alcohol Screen Question Answer Notes Did you have a drink containing alcohol in the p ast year? No Points 0 Interpretation Negative Problems Problem Type SNOMED Code ICD Code Onset Dates Problem Status W/U Status Risk Notes Problem [id number] Colon cancer screening (Z12.11) Active confirmed Plan Of Treatment Future Test Test Name Order Date COLONOSCOPY 11/14/2020 Insurance Providers Payer Name Payer Address Payer Phone Subscriber Number Group Number Insured Name Patient Relationship to Insured Coverage Start Date Coverage End Date MEDICARE OF [place] [address] [place] [id number] KIARRA, SISTER SHOAIB Self - patient is the insured MEDICAID OF [employer] [address] [place] [phone] [id number] KIARRA, SISTER SHOAIB Self - patient is the insured Medical (General) History Medical History History ICD Code Endometrial cancer, status post CAIT/BSO/ lymph node dissection, XRT 2018 Pelvic fracture 2019 Hyperlipidemia Hypothyroidism Colonoscopy, screening 05/24, ten-year fo [facility] Surgical History Surgery Date(Month/Year) CAIT/BSO/lymph node dissection 2017 Right iliac wing ORIF and bone biopsy
== END 2024-08-15 08:51 | disposition home or self-care (01) ==
LOC: HO.MAMMO 08:50
PROVIDERS: PCP Internal Medicine; Visit Provider Internal Medicine
DX: Z12.31 Encounter for screening mammogram for malignant neoplasm of breast (principal); Z13.820 Encounter for screening for osteoporosis; Z78.0 Asymptomatic menopausal state
CPT/HCPCS: 77063; 77067; 77080

== ENCOUNTER → 2024-08-15 09:15 | Outpatient (BNV) | payer MEDICARE, MEDICAID, SELFPAY | PROVIDERS: PCP Internal Medicine; Visit Provider Radiology Diagnostic Radiology | DX: E28.39 Other primary ovarian failure (principal) | CPT/HCPCS: 77080 ==